=== PATIENT | female | born 1955 | race Caucasian/White ===

== ENCOUNTER → 2016-06-06 | Outpatient (CLI) | payer BC ==
[~2016-06-06] MED LIST: IBUP-103 PO; MULT-513 PO; RIZA10TA18 PO; TRIATAB3 PO
--- NOTE | 2016-06-06 16:02 | MAMMOGRAPHY REPORT ---
BILATERAL DIGITAL SCREENING MAMMOGRAM TOMOSYNTHESIS WITH CAD: 06/06/2016 CLINICAL HISTORY: Routine screening. Patient has no complaints. TECHNIQUE: Breast tomosynthesis in addition to standard 2D mammography was performed. Current study was also evaluated with a Computer Aided Detection (CAD) system. COMPARISON: Comparison is made to exams dated: 05/22/2015 ultrasound, 05/22/2015 mammogram, 05/01/2014 mammogram, 04/27/2013 mammogram, 04/05/2012 mammogram, and 04/03/2011 mammogram - [facility] enter. BREAST COMPOSITION: There are scattered areas of fibroglandular density in both breasts. FINDINGS: No suspicious masses, calcifications, or areas of architectural distortion are noted in e ither breast. There has been no significant interval change compared to prior exams. IMPRESSION: ACR BI-RADS CATEGORY 1: NEGATIVE There is no mammographic evidence of malignancy. A 1 year screening mammogram is recommended. The p atient will receive written notification of the results. Approximately 10% of breast cancers are not detected with mammography. A negative mammographic repor t should not delay biopsy if a clinically suggestive mass is present. Shayna Villatoro M.D. /:06/06/2016 15:58:17 Bench Scientist: Supriya Salinas [facility] letter sent: Normal 1/2 BI-RADS Code: ACR BI-RADS Category 1: Negative
== END | disposition home or self-care (01) ==
LOC: C.MAMM 15:29
PROVIDERS: ATTEND Family Medicine
DX: Z12.31 Encounter for screening mammogram for malignant neoplasm of breast (principal)

== ENCOUNTER 2016-10-31 19:52 | Emergency (ER) | payer BC ==
[~2016-10-31] VITALS: Ht 160 cm; Wt 89.2 kg
[2016-10-31 19:57] VITALS: TEMP 36.8; Ht 160 cm; Wt 89.2 kg
[2016-10-31] MEDS ORDERED: IBUP-103 PO (20:12)
[2016-10-31] MEDS ORDERED: RIZA10TA18 PO (20:12)
[2016-10-31] MEDS ORDERED: MULT-513 PO (20:12)
[2016-10-31] MEDS ORDERED: TRIATAB3 PO (20:12)
--- NOTE | 2016-10-31 21:20 | DIAGNOSTIC IMAGING REPORT ---
RIGHT LOWER EXTREMITY VENOUS DOPPLER HISTORY: RIGHT CALF PAIN, EVAL DVT Right COMPARISON STUDY: None. FINDINGS: There is normal compressibility, flow, and augmentation within the right lower extremity deep venous system. A 4.7 x 2.4 x 0.9 cm popliteal cyst. IMPRESSION: No DVT within the right lower extremity Electronically signed by: Chaitanya Katz M.D. 10/31/2016 9:19 PM Dictated Date/Time: 10/31/2016 9:18 PM
--- NOTE | 2016-10-31 21:23 | DIAGNOSTIC IMAGING REPORT ---
RIGHT KNEE 3 VIEWS CLINICAL HISTORY: RIGHT WITH SUNRISE, PAIN Right COMPARISON STUDY: None. FINDINGS: Severe osteoarthritis at the patellofemoral joint with paks-wl-gniw articulation and marked osteophytes. No fracture or dislocation within the right knee. No significant knee effusion. Soft tissues are unremarkable. Partial osteophytes within the medial lateral compartment of the knee. IMPRESSION: No fractures. Severe osteoarthritis at the patellofemoral joint. Electronically signed by: Chaitanya Katz M.D. 10/31/2016 9:22 PM Dictated Date/Time: 10/31/2016 9:21 PM
[2016-10-31 21:25] LABS: MEAN CELL VOLUME 90.1 fL (80-100); MEAN CORPUSCULAR HEMOGLOBIN 30.3 pg (25-34); MEAN CORPUSCULAR HGB CONC 33.6 g/dl (32-36); MEAN PLATELET VOLUME 11.2 fL (7.4-10.4); PLATELET COUNT 193 K/uL (130-400); RED BLOOD COUNT 4.66 M/uL (4.2-5.4)
[2016-10-31 21:38] LABS: PROTHROMBIN TIME (PATIENT) 10.5 SECONDS (9.0-12.0)
[2016-10-31 21:46] LABS: BUN/CREATININE RATIO 11.1 (10-20); CALCIUM 9.5 mg/dl (8.5-10.1); CREATININE 0.93 mg/dl (0.60-1.20); POTASSIUM 3.5 mmol/L (3.5-5.1)
--- NOTE | 2016-10-31 21:52 | EMERGENCY ROOM VISIT NOTE ---
ED Visit Note First contact with patient: 20:02 CHIEF COMPLAINT: Right lower leg pain 5 days HISTORY OF PRESENT ILLNESS: Patient is a 60-year-old white female who presents emergency department for evaluation of right lower leg pain 5 days. She sees her symptoms started after she drove to [place] for a conference. She notes that she was seated for most of the day in meetings for a conference, and returned yesterday. She states that she noted discomfort primarily in the back of the right knee the first day of the conference, after the drive. She states that she had to elevate the leg while seated to help with her discomfort. She also notes that she did a lot of walking. She states the pain is primarily in the posterior lateral aspect of the right knee, but radiates down the calf to her ankle. She tried pacing the knee, taking ibuprofen, massage, position changes and stretches. She is okay when she walks, but feels some soreness in the knee. She states that the pain suddenly increased this afternoon, and when it wasn't not alleviated by ibuprofen they came to the emergency department. She denies any pain in her thigh. No symptoms in the left leg. She denies a numbness, tingling or weakness. She denies any known back, hip or knee problems. No personal or family history of a DVT or PE. She is not on any hormone replacement therapy. She rates her discomfort a 6/10. REVIEW OF SYSTEMS:Review of systems as per HPI. All other systems reviewed were negative. 10 systems reviewed. PMH: Electronic medical records are reviewed and summarized as above/below. See Problem List. SOCIAL HISTORY: Patient lives at home with her . She is employed as a teacher. Nonsmoker. PHYSICAL EXAM: Vital Signs: Reviewed Nurse's notes. Patient is a pleasant, well -appearing 60-year-old white female who is awake and alert and in no acute distress. EXTREMITIES: Leg lengths are symmetrical. Examination of the right leg does not demonstrate any erythema, edema, significant soft tissue swelling or rashes. There is no increased warmth or induration. Distal pulses are easily palpable and symmetrical bilaterally. The calves are soft and nontender. No palpable cords are appreciated. There is no significant knee joint effusion palpable. She has peripatellar tenderness and crepitus and pain along the medial joint line. She has some fullness in the popliteal space. She can extend fully, flex greater than 90. No gross ligamentous instability appreciated. Negative logroll, negative straight leg raise. Hip range of motion is nontender. Sensation to light touch is intact over the lower extremities bilaterally. Negative Homans sign. EMERGENCY DEPARTMENT COURSE: The patient was seen and evaluated as above. CBC, coags and CMP were drawn and were unremarkable. X-rays of the right knee noted patellofemoral arthritis. Ultrasound of the right lower extremity noted no DVT , there was a popliteal cyst noted. I suspect the popliteal cyst is the source of the patient's discomfort. Differential diagnoses also entertained included degenerative joint disease, meniscal tear, DVT, superficial thrombophlebitis, muscle strain, cellulitis, among others. The patient was reassured. She was encouraged to use anti-inflammatory medicines and ice and follow-up with her primary care provider or orthopedics if her symptoms are not improving. The patient rated her pain a 2/10 at discharge. Medication reconciliation: I attest that I have personally reviewed the patient' s current medication list. Blood pressure screening: Patient was found to have a slightly elevated blood pressure due to circumstances. I do not believe that the patient requires hypertension monitoring. RIGHT LOWER EXTREMITY VENOUS DOPPLER HISTORY: RIGHT CALF PAIN, EVAL DVT Right COMPARISON STUDY: None. FINDINGS: There is normal compressibility, flow, and augmentation within the right lower extremity deep venous system. A 4.7 x 2.4 x 0.9 cm popliteal cyst. IMPRESSION: No DVT within the right lower extremity RIGHT KNEE 3 VIEWS CLINICAL HISTORY: RIGHT WITH SUNRISE, PAIN Right COMPARISON STUDY: None. FINDINGS: Severe osteoarthritis at the patellofemoral joint with gfnf-[id number] articulation and marked osteophytes. No fracture or dislocation within the right knee. No significant knee effusion. Soft tissues are unremarkable. Partial osteophytes within the medial lateral compartment of the knee. IMPRESSION: No fractures. Severe osteoarthritis at the patellofemoral joint. Problem List Medical Problems: (1) Hypertension Status: Chronic Surgical Problems: (1) History of hysterectomy Status: Resolved Current/Historical Medications Scheduled Ibuprofen Tab (Advil), 600 MG PO QAM Multivitamins/Minerals (Mvi With Minerals), 1 TAB PO DAILY Rizatriptan Benzoate (Maxalt), 10 MG PO PRN UD Triamterene/Hctz (Triamterene/Hctz 37.5-25MG), 1 TAB PO Q2D Allergies Coded Allergies: Sulfa Antibiotics (Verified Allergy, Mild, HIVES, 10/31/16) Vital Signs Date Time Temp Pulse Resp B/P (MAP) Pulse Ox O2 Delivery O2 Flow Rate FiO2 10/31/16 22:06 95 20 148/97 96 10/31/16 19:57 36.8 96 18 158/103 98 Room Air Laboratory Results 10/31/16 20:30 10/31/16 20:30 Test 10/31/16 20:30 Red Blood Count 4.66 M/uL (4.2-5.4) Mean Corpuscular Volume 90.1 fL (80-100) Mean Corpuscular Hemoglobin 30.3 pg (25-34) Mean Corpuscular Hemoglobin Concent 33.6 g/dl (32-36) RDW Standard Deviation 45.6 fL (36.4-46.3) RDW Coefficient of Variation 13.8 % (11.5-14.5) Mean Platelet Volume 11.2 fL (7.4-10.4) Prothrombin Time 10.5 SECONDS (9.0-12.0) Prothromb Time International Ratio 1.0 (0.9-1.1) Activated Partial Thromboplast Time 26.6 SECONDS (21.0-31.0) Partial Thromboplastin Ratio 1.0 Anion Gap 4.0 mmol/L (3-11) Est Creatinine Clear Calc Drug Dose 69.0 ml/min Estimated GFR () 78.0 Estimated GFR (Non- 67.3 BUN/Creatinine Ratio 11.1 (10-20) Calcium Level 9.5 mg/dl (8.5-10.1) Total Bilirubin 0.4 mg/dl (0.2-1) Aspartate Amino Transf (AST/SGOT) 17 U/L (15-37) Alanine Aminotransferase (ALT/SGPT) 28 U/L (12-78) Alkaline Phosphatase 119 U/L (45-117) Total Protein 7.2 gm/dl (6.4-8.2) Albumin 3.6 gm/dl (3.4-5.0) Globulin 3.6 gm/dl (2.5-4.0) Albumin/Globulin Ratio 1.0 (0.9-2) Departure Information Impression Primary Impression: Synovial cyst of right popliteal space Additional Impressions: Patellofemoral arthritis of right knee Right calf pain Referrals Martell Webster M.D. (PCP) Patient Instructions [facility] Additional Instructions Ibuprofen(Motrin, Advil) may be used for fever or pain. Use 600mg every six hours as needed. Take with food. Avoid using more than 2400mg in a 24 hour period. Do not use 2400mg per day for more than three consecutive days without physician direction. Prolonged inappropriate use can lead to stomach upset or ulcers. This medication can be taken if you need to drive, work, or perform activities which may be dangerous when taking narcotic pain medication. (AND/OR) Acetaminophen(Tylenol) may be used for fever or pain. Use 1000mg every six hours as needed. Avoid using more than 3000mg in a 24 hour period. This medication can be taken if you need to drive, work, or perform activities which may be dangerous when taking narcotic pain medication. Ice compresses for 20 minutes at a time four times daily for 2-3 days. Rest and elevate your injury. May resume normal activity as your pain allows. Continue current medications. Return to the ER immediately for any numbness, tingling, severe pain, extreme swelling in the extremity or as needed. Follow-up with your primary care physician or with orthopedic surgery for further care and management if your symptoms are not improving. Problem Qualifiers
[2016-10-31 22:06] VITALS: BP 148/97; PULSE 95; O2SAT 96
== END 2016-10-31 22:08 | disposition home or self-care (01) ==
LOC: C.EDB 19:52 → C.EDD 22:08
DX: M71.21 Synovial cyst of popliteal space [Baker], right knee (principal); M17.11 Unilateral primary osteoarthritis, right knee; M79.661 Pain in right lower leg; I10 Essential (primary) hypertension; Z90.710 Acquired absence of both cervix and uterus

== ENCOUNTER → 2017-01-16 | Outpatient (CLI) | payer BC ==
--- NOTE | 2017-01-16 16:11 | DIAGNOSTIC IMAGING REPORT ---
MRI OF THE RIGHT KNEE CLINICAL HISTORY: Right knee pain. COMPARISON STUDY: Radiographs of the right knee dated 10/31/2016. TECHNIQUE: MRI of the right knee was performed utilizing proton density, T1, and T2-weighted sequences in the axial, sagittal, coronal planes. IV contrast was not administered for this examination. FINDINGS: Menisci: The medial and lateral menisci appear intact. A 1.3 cm parameniscal cyst is suggested anterior to the lateral meniscus on sagittal image #7. A smaller parameniscal cyst is suggested on image #9. Ligaments: The anterior and posterior cruciate ligaments are intact. The medial and lateral collateral ligaments are within normal limits. Extensor mechanism: The extensor mechanism is intact. Hoffa's fat pad is normal in appearance. 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 There is nearly full-thickness loss along the medial facet and the underlying femoral trochlea. There is extensive subchondral cyst formation with mild marrow edema in the lateral facet as well as underlying femoral trochlea. Only mild degenerative cartilage loss is seen along the weightbearing surface in the medial and lateral compartments. No full-thickness loss is identified. There are marginal osteophytes and degenerative beaking of the tibial spine. There is no MRI evidence of fracture. Mild marrow edema is also seen within the lateral tibial plateau. Joint effusion: There is a moderate joint effusion. Soft tissues: There is generalized atrophy of the regional musculature. No intramuscular edema is seen. A large popliteal cyst measures up to 5.1 cm. Fluid is seen tracking along the gastrocnemius muscle, likely related to the popliteal cyst. Soft tissue edema is noted in the popliteal fossa. There is also prepatellar edema. IMPRESSION: 1. There are 2 parameniscal cysts suggested anterior to the lateral meniscus. The largest measures up to 1.3 cm. No underlying meniscal tear is clearly seen. 2. There is no evidence of ligamentous or meniscal injury in the right knee. 3. Severe chondromalacia patella as above with significant associated reactive marrow edema. 4. Only mild degenerative cartilage loss is seen in the medial and lateral compartments. 5. Moderate joint effusion an large popliteal cyst. Electronically signed by: Umair Knight M.D. 01/16/2017 4:09 PM Dictated Date/Time: 01/16/2017 4:02 PM
== END | disposition home or self-care (01) ==
LOC: C.MRIBC 14:42
PROVIDERS: ATTEND Family Medicine
DX: S83.281A Other tear of lateral meniscus, current injury, right knee, initial encounter (principal); M23.8X1 Other internal derangements of right knee; X58.XXXA Exposure to other specified factors, initial encounter; M23.041 Cystic meniscus, anterior horn of lateral meniscus, right knee; M22.41 Chondromalacia patellae, right knee; M25.461 Effusion, right knee; M71.21 Synovial cyst of popliteal space [Baker], right knee

== ENCOUNTER → 2017-03-16 | Outpatient (CLI) | payer BC | END | disposition home or self-care (01) | LOC: C.RDSM 15:10 | PROVIDERS: ATTEND Physical Medicine & Rehabilitation Sports Medicine | DX: M17.11 Unilateral primary osteoarthritis, right knee (principal) ==

== ENCOUNTER → 2017-07-29 | Outpatient (CLI) | payer BC ==
--- NOTE | 2017-07-30 12:41 | MAMMOGRAPHY REPORT ---
BILATERAL DIGITAL SCREENING MAMMOGRAM TOMOSYNTHESIS WITH CAD: 07/29/2017 CLINICAL HISTORY: Routine screening. Patient has no complaints. TECHNIQUE: Breast tomosynthesis in addition to standard 2D mammography was performed. Current study was also evaluated with a Computer Aided Detection (CAD) system. COMPARISON: Comparison is made to exams dated: 06/06/2016 mammogram, 05/22/2015 ultrasound, 05/22/2015 mammogram, 05/01/2014 mammogram, 04/27/2013 mammogram, and 04/05/2012 mammogram - [facility]. BREAST COMPOSITION: There are scattered areas of fibroglandular density in both breasts. FINDINGS: There are a few benign rounded rim calcifications in the right breast. Stable intramammary lymph node in the left upper outer quadrant posteriorly. No suspicious mass, architectural distorti on or cluster of microcalcifications is seen. IMPRESSION: ACR BI-RADS CATEGORY 1: NEGATIVE There is no mammographic evidence of malignancy. A 1 year screening mammogram is recommended. The pa tient will receive written notification of the results. Approximately 10% of breast cancers are not detected with mammography. A negative mammographic report should not delay biopsy if a clinically suggestive mass is present. Hyun Sutton M.D. ay/:07/29/2017 16:06:04 Account Relationship Manager: Supriya Salinas, [facility] letter sent: Normal 1/2 BI-RADS Code: ACR BI-RADS Category 1: Negative
== END | disposition home or self-care (01) ==
LOC: C.MAMM 15:41
PROVIDERS: ATTEND Family Medicine
DX: Z12.31 Encounter for screening mammogram for malignant neoplasm of breast (principal)

== ENCOUNTER 2020-09-12 06:26 | Observation (INO) ==
--- NOTE | 2020-09-04 11:00 | History & Physical Report ---
Date of Service September 04, 2020 Assessment & Plan (1) Right knee DJD: Postoperative prescriptions for Percocet and Coumadin will be provided at discharge from the hospital. Anticipate discharge to home with home health services. The patient is aware of the COVID-19 risks associated with surgery. She is currently asymptomatic of any COVID-19 symptoms. She will obtain nasal swab testing 2 days prior to surgery. PDMP was checked, and there are no concerning findings. The patient has already seen her PCP for medical clearance. She is receiving an echocardiogram on Thursday. Call with any other concerns. History of Present Illness Chief Complaint: Right knee pain Primary Care Provider: Martell Webster MD This 64-year-old female presents for her preoperative history and physical. She is scheduled to undergo a right knee total knee arthroplasty on 09/12/2020. The patient has had right knee pain for the last several years. It has become significantly worse over the last 6 months. She has been unable to do even simple daily activities without pain secondary to her knee. Her pain is affecting her ADLs and her ability to walk. She is currently using a walking stick with a significant limp. She has tried intra-articular injections as well as activity modification and use of an assistive device without improvement. No numbness or tingling. She notes crepitus with motion. She does note some loss of motion. Preoperative imaging has been obtained. Allergies Allergy/AdvReac Type Severity Reaction Status Date / Time Sulfa (Sulfonamide Allergy Mild HIVES Verified 12/04/17 14:56 Antibiotics) Home Medications Medication Instructions Recorded Confirmed Type ibuprofen 600 mg PO DAILY 12/04/17 12/04/17 History multivitamin 1 tab PO DAILY 12/04/17 12/04/17 History rizatriptan 10 mg PO DAILY PRN 12/04/17 12/04/17 History triamterene-hydrochlorothiazid 1 tab PO DAILY 12/04/17 12/04/17 History Past Med/Surg History Medical History (Updated 09/04/20 @ 10:59 by Kobe Calles PA-C) Hypertension Migraine headache Obesity Osteoarthritis Surgical History (Updated 09/04/20 @ 10:54 by Kobe Calles PA-C) H/O laparoscopy H/O: hysterectomy Family History (Updated 09/04/20 @ 10:55 by Kobe Calles PA-C) Other Osteoarthritis Social History (Updated 09/04/20 @ 10:56 by Kobe Calles PA-C) Hx Alcohol Use: No Visual Impairment: No Limitations Hearing Ability: Normal marital status: Current Living Situation: Spouse current occupational status: employed Feels Safe at Home: Yes Review of Systems Review of Systems: All systems reviewed & are unremarkable except as noted in HPI & below A total of 10 systems were reviewed. Physical Exam Physical Exam: Vitals: Height 159.5 cm, weight 88.9 kg, BMI 34.9, temperature 36.0, BP 138/92, pulse 100, O2 sat 100% on room air. General: well-developed, well-nourished, middle-aged white female in no acute distress. Sitting in a chair. Alert and oriented. Skin: Warm and dry with good turgor. No rashes or lesions. No ecchymosis or erythema. Some minor bug bites were present on the anterior right knee. HEENT: Normocephalic, atraumatic. Eyes: PERRLA, EOMI. Nares patent bilaterally without turbinate large amount. Oropharynx without erythema or exudate, no lesions noted. Uvula midline, oral mucosa moist. Fair dentition. Dental caps are noted. Heart: RRR, no MGR. Lungs: Clear to auscultation bilaterally, no crackles, rhonchi or wheezing, good air movement. Abdomen: Obese, bowel sounds present x4, soft, nontender. No organomegaly. No masses. Musculoskeletal: Right knee evaluation reveals a mild intra-articular effusion. No redness or warmth. There is crepitus palpable with range of motion. There is mild discomfort with palpation over the medial joint line. More significant pain with palpation around the peripatellar area and lateral joint line today. She lacks 2-3 degrees of terminal extension. Flexion to 100 degrees. Strength is 5/5 with fair quad tone. Stable collateral ligaments. No defect in the patellar tendon or quadriceps tendon. Ambulating with a significantly antalgic gait using a walking stick. Neurologic: Gross sensation is intact across the lower extremities by soft touch. Peripheral pulses are 2+. Results & Data Results & Data ([facility]) Diagnostic Findings Radiographic imaging previously obtained shows end-stage DJD of the knee specifically in the patellofemoral compartment. She is entirely pavy-el-axyn. Periarticular osteophytes are also present. There is narrowing of the medial and lateral joint lines as well. No evidence currently for loose bodies.
--- NOTE | 2020-09-06 09:59 | Anesthesiology Consultation ---
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 Preoperative COVID19 testing to be completed on 09/10. PCP clearance 08/29/20 -- "Clinically the patient is felt to be reasonable medical risk for the proposed surgery. But, given the screening EKG showing questionable evidence of lateral wall infarct age indeterminate, we need to get an echocardiogram to rule out questionable lateral wall infarct. If the echo is unremarkable then I feel that the patient is medically optimized to proceed with surgery." Addendum 09/04/2020: Echo Reviewed. "No evidence of a lateral wall infarct as was questioned by EKG." Chart Review Chart Review: Acceptable Risk for Surgery and Patient NOT seen in Pre Admission Testing History Surgery Operation Date: 09/12/20 09:20 Proposed Procedures p Right Total Knee Arthroplasty - Fawad Orozco MD Height/Weight Height: 5 ft 3 in Weight: 86.183 kg Allergies Allergy/AdvReac Type Severity Reaction Status Date / Time Sulfa (Sulfonamide Allergy Mild HIVES Verified 09/05/20 13:17 Antibiotics) Medications Home Medications Medication Instructions Recorded Confirmed Last Taken ibuprofen 600 mg PO DAILY PRN 12/04/17 09/05/20 Unknown multivitamin 1 tab PO QAM 12/04/17 09/05/20 Unknown triamterene-hydrochlorothiazid 1 tab PO QAM 12/04/17 09/05/20 Unknown metoprolol succinate 25 mg PO QAM 09/05/20 09/05/20 Unknown Past Medical History Medical History Hypertension Migraine headache Obesity Osteoarthritis Past Family History Family History Other Osteoarthritis Past Surgical History Surgical History H/O laparoscopy H/O: hysterectomy History of colonoscopy History of esophagogastroduodenoscopy (EGD) Hx of foot surgery left foot hammer toe Hx of oral surgery for abcess root canal Social History Smoking Status: Never smoker Do You Dip or Chew Tobacco: No Hx Alcohol Use: Yes Alcohol type: beer alcohol intake frequency: holidays/special occasions only Hx Substance Use: No substance use type: does not use Lab Results Anesthesia Preop Results Results Anesthesia Widget: WBC 5.48 K/uL (4.8-10.8) 08/22/20 Hgb 14.2 g/dL (12.0-16.0) 08/22/20 Hct 41.8 % (37-47) 08/22/20 Plt 186 K/uL (130-400) 08/22/20 Na 140 mmol/L (136-145) 08/22/20 K 3.8 mmol/L (3.5-5.1) 08/22/20 Cl 107 mmol/L (98-107) 08/22/20 CO2 30 mmol/L (21-32) 08/22/20 BUN 10 mg/dl (7-18) 08/22/20 Creat 0.73 mg/dl (0.6-1.2) 08/22/20 Glucose Level 86 mg/dl (70-99) 08/22/20 PT 10.2 Seconds (9.0-12.0) 08/22/20 PTT 25.9 Seconds (21.0-31.0) 08/22/20 INR 1.0 (0.9-1.1) 08/22/20 Urine Color Yellow 08/22/20 Urine Appearance Clear (Clear) 08/22/20 Urine pH 7.5 (4.5-7.5) 08/22/20 Urine Specific [place] 1.012 (1.000-1.030) 08/22/20 Urine Protein Negative (Negative) 08/22/20 Urine Glucose (UA) Negative (Negative) 08/22/20 Urine Ketones Negative (Negative) 08/22/20 Urine Blood 1+ (Negative) H 08/22/20 Urine Nitrite Negative (Negative) 08/22/20 Urine Bilirubin Negative (Negative) 08/22/20 Urine Urobilinogen Negative (Negative) 08/22/20 Urine Leukocyte Esterase Trace (Negative) H 08/22/20 Urine WBC (Auto) 1-5 /hpf (0-5) 08/22/20 Urine RBC (Auto) 10-30 /hpf (0-4) H 08/22/20 Urine Hyaline Casts (Auto) 0 /lpf (0-5) 08/22/20 Urine Epithelial Cells (Auto) 10-20 /lpf (0-5) H 08/22/20 Urine Bacteria (Auto) Negative (Negative) 08/22/20 Blood Type O Positive 08/22/20 Antibody Screen NEGATIVE 08/22/20 Testing Electrocardiogram Date: 08/22/20 Normal sinus rhythm at 81 bpm. Possible left atrial enlargement. Possible lateral infarct, age undetermined. Compared to EKG of 12/04/2017, T wave inversion no longer evident in inferior leads. Chest X-Ray Date: 08/22/20 No large infiltrates or consolidative lesions are seen. Small opacity at the posterior left costophrenic angle could represent trace pleural effusion or pleural thickening. Echocardiogram Date: 09/03/20 EF: 55-59% The LV cavity size is normal. Mild concentric LVH. LV wall motion is normal. Grade 1 diastolic dysfunction. No significant valvular disease. Stress Test Date: 01/08/18 Resting EF: 55-60% Stress echo was negative for inducible ischemia. No arrhythmias. Normal heart rate and BP response to exercise. Average exercise tolerance. At rest, normal LV chamber size with mild concentric LVH. Normal LV systolic function without regional wall motion normality. Grade 1 diastolic dysfunction. No significant valvular pathology.
--- NOTE | 2020-09-12 06:24 | History & Physical Bridge Note ---
Date of Service September 12, 2020 History & Physical Bridge Note I have examined the patient, reviewed the History & Physical and in the interval since the performance of the History & Physical I have noted the following changes of clinical significance: consent obtained/site verified/covid screen negative.no changes noted
[~2020-09-12 06:26] MED LIST changes: -IBUP-103 PO; +LR 500ML BOLUS, THEN 15ML/HR IV SCH; +LR 60ML/HR IV SCH; -MULT-513 PO; -RIZA10TA18 PO; +ROPIVACAINE 0.5% HCL/PF 150 MG, BUPIVACAINE 0.75% MPF 20 ML, EPINEPHrine 0.15 MG, Ketor... INFIL SCH; +TRANEXAMIC ACID 1,000 MG **IV Pre-op IV SCH; -TRIATAB3 PO; +ceFAZolin 2000MG 2,000 MG/15 ML SYR IV SCH
[2020-09-12] MEDS ORDERED: BUPIVACAINE 0.5 % 5 MG/1 ML PF 10ML VIAL ONE (06:35)
[2020-09-12] MEDS ORDERED: EPINEPHrine INJ 1 MG/ML AMP ONE (06:35)
[2020-09-12] MEDS ORDERED: ROPIVACAINE 0.5% 5 MG/ML 30 ML VIAL ONE (06:35)
[2020-09-12] MEDS ORDERED: ONDANSETRON INJ 2 MG/ML 2 ML VIAL IV PRN ×2 (07:22→11:55)
[2020-09-12] MEDS ORDERED: HYDROmorphone INJ 1 MG/ML SYRINGE IV PRN (07:22)
[2020-09-12] MEDS ORDERED: LABETALOL HCL IV 5 MG/ML 20ML IV PRN (07:22)
[2020-09-12] MEDS ORDERED: MEPERIDINE HCL 25 MG/ML CARP/VIAL IV PRN (07:22)
[2020-09-12] MEDS ORDERED: fentaNYL citrate 100 MCG/2 ML VIAL IV PRN (07:22)
[2020-09-12] MEDS ORDERED: ePHEDrine sulfate 50 MG/ML AMP IV PRN (07:22)
[2020-09-12] MEDS ORDERED: PHENYLEPHRINE 100MCG/ML 5ML SYR IV PRN (07:22)
[2020-09-12] MEDS ORDERED: ATROPINE SULFATE 0.1 MG/ML 10ML SYR IV PRN (07:22)
[2020-09-12] MEDS ORDERED: fentaNYL citrate 100 MCG/2 ML VIAL ONE (07:25)
[2020-09-12] MEDS ORDERED: MIDAZOLAM HCL 1 MG/ML 2ML VIAL ONE (07:25)
[2020-09-12] MEDS ORDERED: PROPOFOL IV EMULSION 10 MG/ML 20 ML VIAL IV ONE (07:28)
[2020-09-12] MEDS ORDERED: ORTHO JOINT ANESTHETIC ONE (08:38)
--- NOTE | 2020-09-12 10:34 | Post Operative Brief Note ---
Immediate Post Op Note v1 Date of Surgery September 12, 2020 Pre & Post Diagnosis Operation Date: 09/12/20 08:50 Pre-Op Diagnosis: Right Knee Degenerative Joint Disease Post-Op Diagnosis: Right Knee Degenerative Joint Disease I identified the patient and participated in the time-out.: Yes Procedure Operation Date: 09/12/20 08:50 Actual Procedures p Right Total Knee Arthroplasty(Right) - Fawad Orozco MD Surgeon Fawad Orozco MD Supercharger Repair [facility] Estimated Blood Loss 25 Findings Consistent with Post-Op Diagnosis
--- NOTE | 2020-09-12 10:42 | Operative Report ---
Post Operative Report Pre & Post Diagnosis Operation Date: 09/12/20 08:50 Pre-Op Diagnosis: Right Knee Degenerative Joint Disease Post-Op Diagnosis: Right Knee Degenerative Joint Disease I identified the patient and participated in the time-out.: Yes Procedure Operation Date: 09/12/20 08:50 Actual Procedures p Right Total Knee Arthroplasty(Right) - Fawad Orozco MD Surgeon DUYEN Orozco MD Rippler micha PETTIT Estimated Blood Loss 25 Findings Consistent with Post-Op Diagnosis Specimens see operative report Drains none Complications none Disposition Accompanied Patient To Recovery: Yes Disposition: Recovery Room Indications This 64-year-old female presented to the office with complaints of intractable right knee pain. She had tried conservative care measures without improvement. She elected to proceed with surgical intervention after being educated about potential risks and outcomes. Preoperative imaging was obtained. Description of Procedure Patient was given a spinal anesthetic and then taken to the operating room where she was given sedation. She was prepped and draped in the usual sterile fashi on. Please see Dr. Orozco's operative report for specifics of the procedure. I was present for the entire case from initial patient positioning through final wound closure. Assistance was provided in patient positioning, tissue retraction, hemostasis, trial implant placement, final implant placement, and final wound closure. Patient was taken to the recovery room in satisfactory condition. I attest to the content of the Intraoperative Record and any orders documented therein. Any exceptions are noted below.
--- NOTE | 2020-09-12 10:49 | Operative Report (OR) ---
DATE OF PROCEDURE: 09/12/2020 SURGEON: Fawad Orozco MD. BRINE TANK TENDER: Kobe Calles PA-C, no resident or fellow available. PREOPERATIVE DIAGNOSES: Osteoarthritis with valgus deformity and severe patellofemoral disease, righ t knee. POSTOPERATIVE DIAGNOSES: Osteoarthritis with valgus deformity and severe patellofemoral disease, rig ht knee. OPERATION PERFORMED: Cemented right total knee replacement. SUMMARY OF IMPLANTS: Size 2.5 right femur posterior cruciate substituting size 2.5 mobile bearing tr ay, size 2.5 x 10 mm PCL substituting insert, oval dome 3-peg patella size 41, two bags of Palacos G cement. ESTIMATED BLOOD LOSS: 25 mL. CRYSTALLOID: Per anesthesia. Bone pathology pending. PERIOPERATIVE SITUATION: Medically cleared female with intractable knee pain, and has failed conserva tive management. At this point in time, she has endstage disease by x-ray and physical exam, wants t o proceed with surgical treatment. She understands the risks and consequences of a total knee replac ement. DESCRIPTION OF PROCEDURE: The patient was appropriately identified, site verified, consent verified. Antibiotics were confirmed as being given. Right lower extremity was prepped and draped in the usu al routine fashion. Tourniquet was inflated to 275 mmHg after exsanguination of limb with a rubber E smarch bandage and total tourniquet time was roughly 50 minutes. Midline exposure utilized. Parapat ellar arthrotomy performed. Synovectomy completed. Osteophytes resected. Cruciates were resected. Tibia was subluxated, menisci resected. Distal femur entered with drill bit and appropriate distal femoral cutting block applied and a 14 mm cut made. Proximal tibia was then aligned with the extrame dullary alignment guide and a 4 mm cut made. Extension gap was excellent. Femur was sized between a 3 and 2.5 was measured 3 cut 2.5. Care was taken to ensure appropriate external rotation of the fem ur. The flexion gap was excellent. A box cut was then made, and a size 2.5 fit well. The tibia was then broached and reamed for 2.5 and with appropriate spacer at 10 mm, the knee was stable in full range of motion including full extension and mid range flexion. The patella tracked well. Patella was melecio y eroded especially on its lateral side, it was appropriately cut, leaving about 14-15 mm. Seating h oles made and a 41 button tracked well. Trial implants were then removed, and everything was irrigat ed with Betadine Pulsavac and the permanent cemented into position tibia, femur and patella in that o rder at 12 minutes, the tourniquet deflated at 14 minutes, the knee was inspected. Minor cement rachell bahman required. It was irrigated one further time and then closed after the permanent spacer was seate d and the knee reduced at 40 degrees of flexion using #2 Vicryl, 2-0 Vicryl and stainless steel clips . Appropriate dressing applied. The patient was transferred to recovery room in satisfactory condit ion, having tolerated the procedure well. Pathology pending on bone. DVT prophylaxis per protocol. Job ID: [id number]
--- NOTE | 2020-09-12 10:59 | XRay Report ---
RIGHT KNEE 2 VIEWS History: Right total knee arthroplasty. Degenerative arthritis. Postop. FINDINGS: The patient is status post a right total knee arthroplasty. The hardware is intact. No frac ture or dislocation. Skin reina are in place. IMPRESSION: Right total knee arthroplasty. No evidence for hardware complication. ACT 112: Negative or not required by law. Electronically signed by: Chaitanya Katz M.D. 09/12/2020 10:58 AM
--- NOTE | 2020-09-12 11:05 | Progress Notes ---
DATE OF SERVICE: 09/12/2020 SUBJECTIVE: Postop check status post right total knee replacement. The patient has done well in the operating room. Denies any chest pain, shortness of breath, fever, chills, nausea, vomiting or head ache. OBJECTIVE: Vital signs are stable. She is afebrile. Wound dressing clean, dry and intact. X-rays pending. ASSESSMENT: Doing well status post right total knee replacement. PLAN: Continue with postop care pathway. DVT prophylaxis per protocol. Discharge tomorrow. Job ID: [id number]
--- NOTE | 2020-09-12 11:07 | Anesthesiology Progress Note ---
Date of Service September 12, 2020 Anesthesia Post Procedure Vital Signs Vital Signs: Temp Pulse Pulse Resp BP Pulse Ox 09/12/20 10:50 63 16 100/60 99 09/12/20 10:43 36.6 C 74 20 107/61 99 09/12/20 07:52 75 18 134/91 97 09/12/20 07:12 36.7 C 84 18 122/85 96 Transfer of Care Handoff Completed per policy Notes Mental Status: alert / awake / arousable Patient Amnestic to Procedure: Yes Nausea / Vomiting: adequately controlled Pain: adequately controlled Airway Patency, RR, SpO2: stable & adequate BP & HR: stable & adequate Hydration State: stable & adequate Neuraxial Anesthesia: was administered and sensory block is resolving Anesthetic Complications: no major complications apparent and Pt Satisfied with anesthetic care
--- NOTE | 2020-09-12 11:19 | Discharge Summary (DS) ---
DATE OF ADMISSION: 09/12/2020 DATE OF DISCHARGE: 09/13/2020 CHIEF COMPLAINT: Right knee pain. HISTORY OF PRESENT ILLNESS: Admitted for elective right total knee replacement. To date the hospital course has been uneventful. Procedure went well. Postoperative x-rays look excellent. PAST MEDICAL AND PAST SURGICAL HISTORY: Remarkable for hypertension, migraine headaches, obesity, lap aroscopy, hysterectomy, osteoarthritis. PREOPERATIVE MEDICATIONS: Include ibuprofen, multivitamins, rizatriptan and triamterene/hydrochloroth iazide. ALLERGIES: SULFA. REVIEW OF SYSTEMS: Reveals no chest pain, shortness of breath, fever, chills, nausea, vomiting or he adache. Postoperative x-rays look excellent. ASSESSMENT: Status post right total knee replacement. PLAN: The plan is for discharge to home tomorrow with services if she does well overnight. Job ID: [id number]
[2020-09-12] MEDS ORDERED: METOCLOPRAMIDE HCL INJ 5 MG/ML 2 ML VIAL IV PRN (11:55)
[2020-09-12] MEDS ORDERED: bisacodyL 10 MG SUPP PR PRN (11:55)
[2020-09-12] MEDS ORDERED: diphenhydrAMINE 50 MG/ML VIAL IV PRN (11:55)
[2020-09-12] MEDS ORDERED: MAGNESIUM HYDROXIDE SUSP 30 ML UDC PO PRN (11:55)
[2020-09-12] MEDS ORDERED: SODIUM CHLORIDE 0.9% 1000ML 1,000 ML IV SCH (11:55)
[2020-09-12] MEDS ORDERED: ALUMINUM/MAGNESIUM SUSP 30 ML UDC PO PRN (11:55)
[2020-09-12] MEDS ORDERED: HYDROmorphone INJ 0.5 MG/0.5 ML SYR IV PRN (11:55)
[2020-09-12] MEDS ORDERED: NALOXONE HCL 0.4 MG/1 ML VIAL/CARP IV PRN (11:55)
[2020-09-12] MEDS: KETOROLAC 30 MG/ML VIAL IV SCH ×2 (14:01→18:35)
[2020-09-12] MEDS ORDERED: WARFARIN SOD 5 MG TAB PO SCH (16:00)
[2020-09-12] MEDS: ACETAMINOPHEN 500 MG TAB PO SCH ×2 (16:33→21:01)
[2020-09-12] MEDS: ORTHO WARFARIN NOMOGRAM SCH (16:34)
[2020-09-12] MEDS ORDERED: TRANEXAMIC ACID / 0.7% NACL 1,000 MG/100 ML BAG IV SCH (16:49)
[2020-09-12] MEDS: ASCORBIC ACID 500 MG TAB PO SCH (18:16)
[2020-09-12] MEDS: FERROUS GLUCONATE 324 MG TAB PO SCH (18:17)
[2020-09-12] MEDS: ceFAZolin 2000MG 2,000 MG/15 ML SYR IV SCH (18:35)
[2020-09-12] MEDS: DOCUSATE SODIUM 100 MG CAP PO SCH (20:56)
[2020-09-12] MEDS ORDERED: SENNA 8.6 MG TAB PO SCH (21:00)
[2020-09-12] MEDS: oxyCODONE HCL IR 5 MG TAB (IMMEDIATE RELEASE) PO PRN (21:56)
[2020-09-13] MEDS: ceFAZolin 2000MG 2,000 MG/15 ML SYR IV SCH (00:01)
[2020-09-13] MEDS: oxyCODONE HCL IR 5 MG TAB (IMMEDIATE RELEASE) PO PRN ×2 (03:18→11:21)
[2020-09-13] MEDS: KETOROLAC 30 MG/ML VIAL IV SCH ×2 (05:07)
[2020-09-13] MEDS: ACETAMINOPHEN 500 MG TAB PO SCH (05:08)
[2020-09-13 05:47] LABS: Hematocrit (blood only) 38.4 % (37-47); Hemoglobin 12.8 g/dL (12.0-16.0); Mean Corpuscular Hemoglobin 30.8 pg (25-34); Mean Corpuscular Hgb Conc 33.3 g/dL (32-36); Mean Corpuscular Volume 92.5 fL (80-100); Mean Platelet Volume 10.6 fL (7.4-10.4); Platelet Count 193 K/uL (130-400); RDW Coefficient of Variation 13.6 % (11.5-14.5); RDW Standard Deviation 46.2 fL (36.4-46.3); Red Blood Count 4.15 M/uL (4.2-5.4); White Blood Count 10.25 K/uL (4.8-10.8)
[2020-09-13 05:57] LABS: INR 1.1 (0.9-1.1); Prothrombin Time 10.8 Seconds (9.0-12.0)
[2020-09-13 06:12] LABS: BUN Creatinine Ratio 21.1 (10-20); Creatinine Clr Calc Pharmacy 92.5 ml/min; Est GFR (African American) 109.5 ml/min; Est GFR (Non-African American) 94.5 ml/min
--- NOTE | 2020-09-13 06:56 | Progress Notes ---
DATE OF SERVICE: 09/12/2020 SUBJECTIVE: Postop check status post right total knee replacement. The patient is doing well. She is already up sitting in a chair. She states that she only needed two pain pills yesterday. She den ies chest pain, shortness of breath, fever, chills, nausea, vomiting, or headache. OBJECTIVE: VITAL SIGNS: Stable. She is afebrile. NEUROLOGIC: Neurovascular check, femoral sciatic nerve is normal. EXTREMITIES: Calves are nontender. Wound dressing clean, dry and intact. LABORATORY DATA: Laboratory work this morning reveals hematocrit stable at 38+, INR is 1.1. She rec eived Coumadin per nomogram. Electrolytes are good. ASSESSMENT AND PLAN: Doing well. Discharged to home today after PT/OT. Job ID: [id number]
[2020-09-13] MEDS: FERROUS GLUCONATE 324 MG TAB PO SCH (07:23)
[2020-09-13] MEDS: ASCORBIC ACID 500 MG TAB PO SCH (07:23)
[2020-09-13] MEDS: DOCUSATE SODIUM 100 MG CAP PO SCH (07:25)
[2020-09-13] MEDS ORDERED: dexAMETHasone 10 MG in SYRINGE 0 ML IV SCH (08:00)
[2020-09-13] MEDS ORDERED: METOPROLOL SUCC 25MG EXT REL TAB PO SCH (09:00)
[2020-09-13] MEDS ORDERED: MULTIVITAMIN TAB PO SCH (09:00)
[2020-09-13] MEDS ORDERED: TRIAMTERENE/HCTZ 37.5/25MG CAP PO SCH (09:00)
--- NOTE | 2020-09-13 10:13 | Orthopedic Progress Note ---
Date of Service September 13, 2020 Assessment & Plan (1) S/P total knee arthroplasty: Patient's dressings were changed today by me. New pressure dressing and VALENTIN hose were applied. PT/OT today. Discharge to home today after therapy is completed. Written discharge instructions were provided. Prescriptions for Percocet and Coumadin were sent to her pharmacy. Continue with the immobilizer today and tomorrow and discontinue on Thursday. Follow-up in the office in 2 weeks as scheduled for staple removal. Admission and Anticipated Discharge Date Admission Date: September 12, 2020 Subjective Patient is seen in her room this morning. She denies any chest pain, shortness of breath, nausea, vomiting, or abdominal pain. She is very pleased with her outcome. She states she has minimal pain. She feels ready for discharge to home. No additional complaints at this point. She has been out of bed and ambulatory. Review of Systems Review of Systems: Unchanged from yesterday. Physical Exam Physical Exam: General: Well-developed, well-nourished, middle-aged white female, in no acute distress. Sitting in a chair. Alert and oriented. Skin: Warm dry with good turgor. No rashes or lesions. Expected postoperative edema. Minimal ecchymosis. Dry postsurgical dressings are in place. Upon removal, she has no active bleeding. Scant drainage on her dressings. [place] are intact. Wound edges are well approximated. Musculoskeletal: Patient has intact motor function of her hip, knee, and ankle. She is able to perform straight leg raise. Full terminal extension. Flexion to around 60 degrees without difficulty. Neurologic: Gross sensation is intact across the right leg by soft touch. Peripheral pulses are 2+. Results & Data ([facility]) Vital Signs (Past 12 Hours) Vital Signs Temp Pulse Resp BP BP Pulse Ox 09/13/20 08:57 36.5 C 68 16 128/78 130/87 99 09/13/20 07:15 36.5 C 68 16 130/87 99 09/13/20 03:21 36.5 C 68 20 128/78 99 09/12/20 22:43 36.7 C 77 20 117/77 97 Laboratory Results CBC obtained this morning is unremarkable. INR is 1.1. PRP is also unremarkable. BUN of 14 and creatinine of 0.65. Glucose 108.
[2020-09-13] MEDS: ORTHO WARFARIN NOMOGRAM SCH (10:58)
[2020-09-13] MEDS ORDERED: WARFARIN SOD 5 MG TAB PO ONE (10:59)
== END 2020-09-13 12:46 | disposition home health service (06) ==
LOC: ASU 06:26 → 3E 06:26

== ENCOUNTER 2024-07-17 17:09 | Inpatient (IN) ==
--- OUTSIDE RECORDS SUMMARY | 2024-07-17 17:13 | External Medical Summary | Summary of Care ---
Author Name Unknown Organization [facility] Address [address] [place] [address] Phone [phone] Care Team Providers Care Intellectual Property Legal Assistant Name Role Phone Martell Webster MD Primary Care Provider [phone] Encounter Details Date Type Department Care Team (Late st Contact Info) Description 04/21/2024 Population Health External Data Unspecified Department Allergies Active Allergy Reactions Criticality Noted Date Comments Sulfa Antibiotics 06/10/1999 hives documented as of this encounter (statuses as of 04/21/2024) Medications MULTIVITAMINS PO TABS daily 0 8 Active Metoprolol Succinate ER 25 MG Oral Tablet Extended Release 24 Hour (toPROL XL)Indications:Es sential hypertension with goal blood pressure less than 140/90 Take 1 Tablet by mouth in the morning. In the morning.. 90 Tablet 3 4 Active Triamterene-HCTZ 37.5-25 MG Oral Capsule (Dyazide)Indicati ons:Essential hypertension with goal blood pressure less than 140/90 Take 1 Capsule by mouth in the morning. 90 Capsule 3 4 Active Rogaine Womens 5 % External Foam (Minoxidil)Indica tions:Alopecia areata Apply topically to affected area daily. Apply to affected area of scalp daily 60 g 11 4 Active Clobetasol Propionate 0.05 % External Ointment (Temovate)Indicat ions:Alopecia areata Apply 2x daily to areas of scalp itch when needed 60 g 5 Active Ketoconazole 2 % External CreamIndications: Seborrheic dermatitis of scalp Massage into scalp and rinse out after 5-10 minutes, 3x weekly. Can use own shampoo afterwards if desired. 60 g 2 5 Active documented as of this encounter (statuses as of 04/21/2024) Active Problems Problem Noted Date Diagnosed Date Migraine without aura and wi thout status migrainosus, not intractable 04/08/2019 Vitamin D deficiency 01/09/2014 Urinary frequency 12/03/2004 Dysuria 12/03/2004 HTN, goal below 140/90 Diarrhea Migraine documented as of this encounter (statuses as of 04/21/2024) Resolved Problems Problem Noted Date Diagnosed Date Resolved Date Laceration of left middle fi nger with foreign body without damage to nail 04/10/2020 04/10/2020 ADVANCE DIRECTIVE INFORMATION 02/20/2008 02/01/2024 Overview (02/20/2008): No, Advance Directive brochure given to patient at prior appointment. ACUTE CYSTITIS 12/03/2004 05/25/2008 Overview (05/25/2008): Resolved per Benign Acute Dxs Protocol #3 ACUTE SINUSITIS NOS 05/31/1999 05/18/19 09 Overview (05/18/2008): Resolved per Benign Acute Dxs Protocol #3 documented as of this encounter (statuses as of 04/21/2024) Immunizations Name Administration Dates Next Due COVID-19 mRNA, LNP-s, No Pre serve, 2-Dose Series (Moderna) 06/09/2020,04/29/2020 COVID-19, mRNA, LNP-s, PF, B ooster, 100mcg/0.5mg (Moderna) 01/09/2024,01/25/2021 PPD 12/10/2018 Pneumococcal Conjugate Vacci ne, 20-valent (Ononsbg30) 07/18/2022 Respiratory Syncytial Virus (Rsv) Vaccine, Unspecified (Use this ONLY If the brand of RSV MAB is not able to be identified) 02/08/2023 Seasonal Influenza Vac., MDV , IM, 0.5 mL (Fluzone) 01/09/2014,01/06/2013,02/02/2012,01/28,02/03/2008,02/03/2007 Seasonal Influenza, PF, 6 M & above, IM , (FluLaval or Fluzone) 12/15/2020,12/23/2019,01/17/2019,01/27,02/09/2017 Seasonal Influenza, Quadriva lent Hd (Fluzone Hd) 01/09/2024,02/01/2022 Seasonal Influenza, Quadriva lent, No Preserve, IM 02/20/2016,01/10/2015 01/11/2016 TDAP (age 10 and older)(Boostrix) 04/10/2020 TDAP, Age 7 and older, IM (Adacel) 2009 Zoster Vaccine Recombinant (Shingrix) 12/12/2019,04/08/2019 10/07/2019 documented as of this encounter Social History Tobacco Use Types Packs/Day Years Used Date Smoking Tobacco: Never Smokeless Tobacco: Never Alcohol Use Standard Drinks/Week Comments Yes 0 (1 standard drink = 0.6 oz pur e alcohol) rare PHQ-2 Answer Date Recorded PHQ Adult Total Score 0 07/21/2023 Hunger Vital Sign Answer Date Recorded Within the past 12 months, y ou worried that your food would run out before you got the money to buy more. Never true 07/19/19 23 Within the past 12 months, t he food you bought just didn't last and you didn't have money to get more. 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 Not on file Not on file Not on olive e documented as of this encounter Plan of Treatment Upcoming Encounters Date Type Department Care Team (Late st Contact Info) Description 07/11/2024 8:20 AM EDT [facility] [address] [place] [phone] Martell Webster MD [address] [place] [address] Scheduled Procedures Name Priority Associated Diagnoses Date/Ti me COLONOSCOPY FLEXIBLE PROXIMA L DIAGNOSTIC Recall Encounter for screening colonoscopy Health Maintenance Due Date Last Done Comments Cologuard 2001 Fecal Occult Blood Test 2001 Sigmoidoscopy 2001 Adult Wellness Visit 2022 COVID-19 Vaccine ( season) 2024 01/09/2024, 01/09/2023, 01/25/2021, Additional history exists Depression Screening 07/20/2024 07/21/2023 GFR 07/20/2024 07/21/2023, 06/29, 07/17/2021, Additional history exists Mammogram 12/29/2024 12/30/2023, 11/29, 12/18/2022, Additional history exists Albumin/Creatinine Ratio 07/21/2025 07/21/2022, 06/29 DXA Scan 08/19/2025 08/19/2022, 08/19/2022 Diabetes Screening 07/20/2026 07/21/2023, 0 07/21/2022, 07/17/2021, Additional history exists Colonoscopy 02/02/2028 02/01/2018, 07/2017, 10/04/2007 Colorectal Cancer Screening 02/02/2028 Lipid Panel 07/20/2028 07/21/2023, 06/29, 07/17/2021, Additional history exists DTap/Tdap Vaccines (3 - Td or Tdap) 04/10/2030 04/10/2020, 2009, 10/19/2003 Zoster Vaccines Completed 12/12/2019, 04/08/2019 Pap Smear Discontinued 07/09/2020, 12/28, 04/15/2010 (Done elsewhere), Additional history exists Pneumococcal Vaccine: 50+ Years Completed 07/18/2022 Influenza Vaccine (FLU shot) Completed 01/09/2024, 01/09/2023, 02/01/2022, Additional history exists HPV (Gardasil) Vaccine Aged Out No lo nger eligible based on patient's age to complete this topic Hepatitis B Vaccine Aged Out No longe r eligible based on patient's age to complete this topic MENINGOCOCCAL (MENACTRA/MENVEO) Aged Out No longer eligible based on patient's age to complete this topic documented as of this encounter Medical Devices Not on filedocumented as of this encounter Care Teams Intellectual Property Legal Assistant Relationship Specialty Start Date End Date Martell Webster MD PCP - General 04/03/99 documented as of this encounter
--- OUTSIDE RECORDS SUMMARY | 2024-07-17 17:13 | External Medical Summary | Summary of Care ---
Author Name Unknown Organization [facility] Address [address] [facility] [facility] [address] Phone [phone] Care Team Providers Care Director Trade Name Role Phone Martell Webster MD Primary Care Provider [phone] Reason for Visit * Reason Comments NEW PATIENT New pt. Here for yakov r loss, first noticed January 2024. Pt is not currently treating with anything. * Evaluate & Treat - Unlimited Visits (Within 30 days (routine)) - Authorized Specialty Diagnoses / Procedures Referred By Grey t Referred To Contact Dermatology Diagnoses Alopecia areata Martell Webster MD [address] [facility] [place] [address] Phone: tel: fax: Referral ID Status Reason Start Date Expiration Date Visits Requested Visits Authorized [id number] Authorized Specialty Services Required 03/01/2024 [id number] Encounter Details Date Type Department Care Team (Late st Contact Info) Description 04/07/2024 9:00 AM EST Office Visit [facility] [address] [place] [phone] Muna Rivers PA-C [address] [place] [address] [place] [phone] Alopecia areata*; Seborrheic dermatitis of scalp Allergies Active Allergy Reactions Criticality Noted Date Comments Sulfa Antibiotics 06/10/1999 hives documented as of this encounter (statuses as of 04/07/2024) Medications MULTIVITAMINS PO TABS daily 0 8 [...] as of this encounter (statuses as of 04/07/2024) Active Problems Problem Noted Date Diagnosed Date Migraine without aura and wi thout status migrainosus, not intractable 04/08/2019 Vitamin D deficiency 01/09/2014 Urinary frequency 12/03/2004 Dysuria 12/03/2004 HTN, goal below 140/90 Diarrhea Migraine documented as of this encounter (statuses as of 04/07/2024) Resolved Problems Problem Noted Date Diagnosed Date [...] as of this encounter (statuses as of 04/07/2024) Immunizations Name Administration Dates Next Due COVID-19 mRNA, LNP-s, No Pre serve, 2-Dose Series (Moderna) 06/09/2020,04/29/2020 COVID-19, mRNA, LNP-s, PF, B ooster, 100mcg/0.5mg (Moderna) 01/09/2024,01/25/2021 PPD 12/10/2018 Pneumococcal Conjugate Vacci ne, 20-valent ([id number]) 07/18/2022 Respiratory Syncytial Virus (Rsv) Vaccine, Unspecified [...] 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 on file Not on file Not on olive e documented as of this encounter Patient Instructions * Patient Instructions* Muna Rivers PA-C - 04/07/2024 9:13 AM EST The side effects of chronic topical steroid use were discussed with patient and include but are notlimited to telangiectasia (broken blood vessels), striae (stretch mendez), atrophy (thin skin), purpura (bruising), allergic contact dermatitis, acneiform eruptions and medicine addiction (rebound rash after cessation), cataracts, suppression of the body’s ability to create its own cortisol, weight gain, poor height growth, and high blood sugar. Advocated avoidance of use nears eyes (glaucoma and cataracts) and skin folds (enhanced effect = atrophy) unless otherwise directed. Advised to use the medication only as needed. Our plan will alwaysbe to use the lowest potency possible and to use a regimen that employs intermittent rather than constant use of topical steroids. If the rash clears then stop and transition to CERAVE CREAM for maintenance. documented in this encounter Progress Notes * Muna Rivers PA-C - 04/07/2024 9:00 AM EST SUBJECTIVE: HPI: Winter Pritchard is a 68 year old female seen at the request of Martell Webster MD for evaluation and treatment of hair loss. Hair loss noticed in 11/24 by hairdresser. Pcp prescribed Rogaine 5% foam but was not started. Hx of alopecia areata, once previously after surgery and unsure what would have caused it this time, stress level has dissipated. Areas/scalp can be itchy. No hx of autoimmune conditions. REVIEW OF SYSTEMS: SKIN: No other new or changing moles. HEME/LYMPH: No new or enlarging lumps or bumps. CONSTITUTIONAL: No nausea, vomiting, fevers, chills, diarrhea. No recent unintended weight loss, night sweats, appetite or malaise. RESP: negative MSK/EXT: Negative or as per HPI GI: negative CV: Negative or as per HPI Rest of systems are negative or as per HPI SKIN CANCER HX: NONE Reviewed, same day as visit, [facility] Dermatology lab work(s)/pathology report(s) as well as those sent by referring provider prior to seeing pt. Past Medical History: Diagnosis Date Diarrhea HTN, goal below 140/90 Migraine Urinary frequency FAMILY HISTORY: Skin CA: None Skin Disorders: none SOCIAL HISTORY: Social History Tobacco Use Smoking status: Never Smokeless tobacco: Never Substance Use Topics Alcohol use: Yes Comment: rare Vaping/E-Cigarette Use Vaping/E-Cigarette Use Never Assessed Vaping/E-Cigarette Substances Vaping/E-Cigarette Devices MEDICA TIONS: Current Outpatient Medications Medication Sig Dispense Refill MULTIVITAMINS PO TABS daily 0 Metoprolol Succinate ER 25 MG Oral Tablet Extended Release 24 Hour (toPROL XL) Take 1 Tablet by mouth in the morning. In the morning.. 90 Tablet 3 Triamterene-HCTZ 37.5-25 MG Oral Capsule (Dyazide) Take 1 Capsule by mouth in the morning. 90 Capsule 3 Rogaine Womens 5 % External Foam (Minoxidil) Apply topically to affected area daily. Apply to affected area of scalp daily 60 g 11 No current facility-administered medications for this visit. ALLERGY: Sulfa antibiotics OBJECT JOSEFINA: GEN: alert, no distress, appears oriented, pleasant, and cooperative. SKIN: Detailed exam of hair, face including lids and lips, and palpation of scalp completed: 1. Vertex/temporal regions of scalp-Well defined area of alopecia with mature white hair growth within. No erythema, no rash. 2. Generalized scalp-White greasy scale adherent to hair shafts, not on scalp. ASSESS MENT/PLAN: 1. Alopecia areata on vertex/temporal regions of scalp, almost resolved- Discussed condition and plan to use clobetasol 0.05% cream for any isolated itch or new areas of alopecia. Pt declined need forILK at this visit but might consider in future if new lesions appear. -Side effects of medication written and printed on checkout sheet. 2. Talha derm on scalp-Start ketoconazole 2% shampoo TIW. Patient alone today. Photo(s) of #1-2 taken, pt verbally consented to having photo(s) taken. Follow-up: as needed Photos and chart reviewed by Dr. Jesús Mendez. Presum ed diagnoses, expected natural histories, and management options discussed with the patient at length. Questions were addressed and anticipatory guidance provided. They were instructed to contact me if additional questions, concerns, or problems develop in the interim. -There were no barriers to learning and no other pain was related to today's visit. The patient and/or person accompanying patient demonstrates understanding of the visit and treatment. Muna Rivers PA-C 04/07/2024 8:54 AM Dermatology, [address] [place] [phone] documented in this encounter Nursing Notes * Asuncion Conde LPN - 04/07/2024 8:50 AM EST Patient identified by full name and date of Chief Complaint Patient presents with NEW PATIENT New pt. Here for hair loss, first noticed January 2024. Pt is not currently treating with anything. documented in this encounter Plan of Treatment Upcoming Encounters Date Type Department Care Team (Late st Contact Info) Description 07/11/2024 8:20 AM EDT Office Visit [facility] [place], [place] [address] [place] [phone] Martell Webster MD [address] [place] [phone] Scheduled Procedures Name Priority Associated Diagnoses Date/Ti [...] Not on filedocumented as of this encounter Procedures Procedure Name Priority Date/Time Associated Diagnosis Comments DERM EXAM - DERM (IMAGES ONLY, NO REPORT) Routine 04/07/2024 9:09 AM EST Alopecia areata Seborrheic dermatitis of scalp documented in this encounter Results * DERM EXAM - DERM (IMAGES ONLY, NO REPORT) (04/07/2024 9:09 AM EST) Narrative Scheduling, Silent - 04/07/2024 9:09 AM EST This is an imaging study not interpreted or resulted by a [employer] or [employer] contracted radiologist. us Muna Rivers PA-C RADIOLOGY ([facility] ) Final Result documented in this encounter Visit Diagnoses Diagnosis Alopecia areata- Primary Seborrheic dermatitis of scalp Other seborrheic dermatitis documented in this encounter Care Teams Director Trade Relationship Specialty Start Date End Date Martell Webster MD PCP - General 04/03/99 documented as of this encounter
--- OUTSIDE RECORDS SUMMARY | 2024-07-17 17:13 | External Medical Summary | Summary of Care ---
Author Name Unknown Organization [facility] Address [address] [facility] [address] Phone [phone] Care Team Providers Care Polysomnography Technician Name Role Phone Jovan Webster MD Primary Care Provider Reason for Visit * Reason Comments eRx-Medication Refill Encounter Details Date Type Department Care Team (Late st Contact Info) Description 06/05/2024 Refill [facility] [address] [place] [phone] Jovan Webster MD [address] [place], [place] [phone] Encounter for long-term (current) drug use*; Essential hypertension with goal blood pressure less than 140/90 Allergies Active Allergy Reactions Criticality Noted Date Comments Sulfa Antibiotics 06/10/1999 hives documented as of this encounter (statuses as of 06/06/2024) Medications MULTIVITAMINS PO TABS daily 0 11/11/19 08 Active Rogaine Womens 5 % External Foam (Minoxidil)Indic ations:Alopecia areata Apply topically to affected area daily. Apply to affected area of scalp daily 60 g 11 03/01/20 24 Active Clobetasol Propionate 0.05 % External Ointment (Temovate)Indica tions:Alopecia areata Apply 2x daily to areas of scalp itch when needed 60 g 04/07/19 25 Active Ketoconazole 2 % External CreamIndications :Seborrheic dermatitis of scalp Massage into scalp and rinse out after 5-10 minutes, 3x weekly. Can use own shampoo afterwards if desired. 60 g 2 04/07/19 25 Active Triamterene-HCTZ 37.5-25 MG Oral Capsule (Dyazide)Indicat ions:Essential hypertension with goal blood pressure less than 140/90 TAKE 1 CAPSULE BY MOUTH IN THE MORNING 90 Capsule 06/07/19 25 Active Metoprolol Succinate ER 25 MG Oral Tablet Extended Release 24 Hour (toPROL XL)Indications:E ssential hypertension with goal blood pressure less than 140/90 TAKE 1 TABLET BY MOUTH IN THE MORNING 90 Tablet 06/07/19 25 Active Metoprolol Succinate ER 25 MG Oral Tablet Extended Release 24 Hour (toPROL XL)Indications:E ssential hypertension with goal blood pressure less than 140/90 Take 1 Tablet by mouth in the morning. In the morning.. 90 Tablet 3 07/21/19 24 025 Discontinued Triamterene-HCTZ 37.5-25 MG Oral Capsule (Dyazide)Indicat ions:Essential hypertension with goal blood pressure less than 140/90 Take 1 Capsule by mouth in the morning. 90 Capsule 3 07/21/19 24 025 Discontinued documented as of this encounter (statuses as of 06/06/2024) Active Problems Problem Noted Date Diagnosed Date Migraine without aura and wi thout status migrainosus, not intractable 04/08/2019 Vitamin D deficiency 01/09/2014 Urinary frequency 12/03/2004 Dysuria 12/03/2004 HTN, goal below 140/90 Diarrhea Migraine documented as of this encounter (statuses as of 06/06/2024) Resolved Problems Problem Noted Date Diagnosed Date [...] as of this encounter (statuses as of 06/06/2024) Immunizations Name Administration Dates Next Due COVID-19 mRNA, LNP-s, No Pre serve, 2-Dose Series (Moderna) 06/09/2020,04/29/2020 COVID-19, mRNA, LNP-s, PF, B ooster, 100mcg/0.5mg (Moderna) 01/09/2024,01/25/2021 PPD 12/10/2018 Pneumococcal Conjugate Vacci ne, 20-valent ([id number]) 07/18/2022 Respiratory Syncytial Virus (Rsv) Vaccine, Unspecified [...] 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 Not on file Not on olive e documented as of this encounter Miscellaneous Notes * Telephone Encounter - Derick Guerrero RPh - 06/06/2024 2:52 PM EDTSigned Prescriptions: Disp Refills Triamterene-HCTZ 37.5-25 MG Oral Capsule (*90 Cap*0 Sig: TAKE 1 CAPSULE BY MOUTH IN THE MORNINGAuthorizing Provider: JOVAN WEBSTER User: DERICK GUERREROMetoprolol Succinate ER 25 MG Oral Tablet *90 Tab*0 Sig: TAKE 1 TABLET BY MOUTH IN THE MORNINGAuthorizing Provider: JOVAN WEBSTER User: DERICK GUERRERO * Telephone Encounter - Derick Guerrero RPh - 06/06/2024 2:51 PM EDT Refill approved until upcoming OV on 07/11 - pt will be due for labs Thank you, Derick Guerrero, PharmD Clinical Pharmacist [facility] 06/06/24 2:51 PM [phone] documented in this encounter Plan of Treatment Upcoming Encounters Date Type Department Care Team (Late st Contact Info) Description 07/11/2024 8:20 AM EDT Office Visit [facility] [address] [address] [phone] Jovan Webster MD [address] [place] [address] Scheduled Orders Name Type Priority Associated Diagnoses Orde r Schedule COMPREHENSIVE METABOLIC PANEL Lab Routine Essential hypertension with goal blood pressure less than 140/90 Encounter for long-term (current) drug use Expected: 06/13/2024 (Approximate), Expires: 06/06/2025 Scheduled Procedures Name Priority Associated Diagnoses Date/Ti [...] 07/17/2021, Additional history exists Colonoscopy 02/02/2028 02/01/2018, 0 07/2017, 10/04/2007 Colorectal Cancer Screening 02/02/2028 Lipid [...] on patient's age to complete this topic Meningitis B Vaccine (Bexsero/Trumemba) Aged Out No longer eligible based on patient's age to complete this topic documented as of this encounter Medical Devices Not on filedocumented as of this encounter Visit Diagnoses Diagnosis Encounter for long-term (current) drug use- Primary Encounter for long-term (current) use of other medications Essential hypertension with goal blood pressure less than 140/90 documented in this encounter Care Teams Polysomnography Technician Relationship Specialty Start Date End Date Jovan Webster MD PCP - General 04/03/99 documented as of this encounter
--- OUTSIDE RECORDS SUMMARY | 2024-07-17 17:13 | External Medical Summary ---
Author Name Unknown Address Unknown Organization [id number]:[facility] [place] [address] [facility] [place] [address] Laboratory Report Ordering Provider Test Date Status NICOLAS SEPULVEDA 06/14/2024 07:57:22 Final Observation Date Value Abnormality Reference (Units ) Status BUN 06/14/2024 07:57:22 8 6-20 (mg/dL) Final Creatinine 06/14/2024 07:57:22 0.8 0.5-1.0 (mg/dL) Final Glomerular filtration rate/1.73 sq M.predicted [Volume Rate/Area] in Serum, Plasma or Blood by Creatinine-based formula (CKD-EPI) 06/14/2024 07:57:22 83 >=60 (mL/min) Final eGFR is calculated based on the CKD-EPI 2020 equation. Sodium 06/14/2024 07:57:22 142 135-146 (m mol/L) Final Potassium 06/14/2024 07:57:22 4.1 3.5-5.1 (m mol/L) Final Cl 06/14/2024 07:57:22 104 98-107 (mm ol/L) Final CO2 06/14/2024 07:57:22 28 22-32 (mmo l/L) Final Anion gap 06/14/2024 07:57:22 10 7-15 (mmol /L) Final Glucose 06/14/2024 07:57:22 80 70-120 (mg /dL) Final Albumin 06/14/2024 07:57:22 4.1 3.8-5.0 (g /dL) Final AST (Aspartate aminotransferase) 06/14/2024 07:57:22 20 10-35 (U/L) Final Alk Phos 06/14/2024 07:57:22 115 35-130 (U/ L) Final Bilirubin, Total 06/14/2024 07:57:22 0.7 <=1 .2 (mg/dL) Final Calcium 06/14/2024 07:57:22 9.8 8.4-10.2 ( mg/dL) Final Protein 06/14/2024 07:57:22 6.6 6.0-8.3 (g /dL) Final ALT (Alanine aminotransferase) 06/14/2024 07:57:22 20 10-35 (U/L) Final Performing Location [facility] [place] [address] [facility] [address]
--- OUTSIDE RECORDS SUMMARY | 2024-07-17 17:13 | External Medical Summary | Summary of Care ---
Author Name Unknown Organization [facility] Address [address] [place] [address] Phone [phone] Care Team Providers Care Mediation Commissioner Name Role Phone Martell Webster MD Primary Care Provider [phone] Reason for Visit * Reason Comments Physical-Exam Patient is here toda y for a yearly physical. Patient states no concerns today. Encounter Details Date Type Department Care Team (Late st Contact Info) Description 07/01/2024 2:20 PM EDT Office Visit [facility] [address] [phone] Martell Webster MD [address] [facility] [place] [address] Seborrheic dermatitis of scalp* Allergies Active Allergy Reactions Criticality Noted Date Comments Sulfa Antibiotics 06/10/1999 hives documented as of this encounter (statuses as of 07/02/2024) Medications MULTIVITAMINS PO TABS daily 0 8 Active Clobetasol Propionate 0.05 % External Ointment (Temovate)Indica tions:Alopecia areata Apply 2x daily to areas of scalp itch when needed 60 g 5 Active Ketoconazole 2 % External CreamIndications :Seborrheic dermatitis of scalp Massage into scalp and rinse out after 5-10 minutes, 3x weekly. Can use own shampoo afterwards if desired. 60 g 2 5 Active Triamterene-HCTZ 37.5-25 MG Oral Capsule (Dyazide)Indicat ions:Essential hypertension with goal blood pressure less than 140/90 TAKE 1 CAPSULE BY MOUTH IN THE MORNING 90 Capsule 5 Active Metoprolol Succinate ER 25 MG Oral Tablet Extended Release 24 Hour (toPROL XL)Indications:E ssential hypertension with goal blood pressure less than 140/90 TAKE 1 TABLET BY MOUTH IN THE MORNING 90 Tablet 5 Active Rogaine Womens 5 % External Foam (Minoxidil)Indic ations:Alopecia areata Apply topically to affected area daily. Apply to affected area of scalp daily 60 g 11 4 025 Discontin ued(Patie nt preferenc e/discont inuation) documented as of this encounter (statuses as of 07/02/2024) Active Problems Problem Noted Date Diagnosed Date HTN, goal below 130/80 07/01/2024 Migraine without aura and wi thout status migrainosus, not intractable 04/08/2019 Vitamin D deficiency 01/09/2014 Urinary frequency 12/03/2004 Migraine documented as of this encounter (statuses as of 07/02/2024) Resolved Problems Problem Noted Date Diagnosed Date Resolved Date Laceration of left middle fi nger with foreign body without damage to nail 04/10/2020 04/10/2020 ADVANCE DIRECTIVE INFORMATION 02/20/2008 02/01/2024 Overview (02/20/2008): No, Advance Directive brochure given to patient at prior appointment. ACUTE CYSTITIS 12/03/2004 05/25/2008 Overview (05/25/2008): Resolved per Benign Acute Dxs Protocol #3 Dysuria 12/03/2004 07/01/2024 ACUTE SINUSITIS NOS 05/31/1999 05/18/19 09 Overview (05/18/2008): Resolved per Benign Acute Dxs Protocol #3 HTN, goal below 140/90 07/01 Diarrhea 07/01/2024 documented as of this encounter (statuses as of 07/02/2024) Immunizations Name Administration Dates Next Due COVID-19 mRNA, LNP-s, No Pre serve, 2-Dose Series (Moderna) 06/09/2020,04/29/2020 COVID-19, mRNA, LNP-s, PF, B ooster, 100mcg/0.5mg (Moderna) 01/09/2024,01/25/2021 PPD 12/10/2018 Pneumococcal Conjugate Vacci ne, 20-valent ([id number]) 07/18/2022 Respiratory Syncytial Virus (RSV) Vaccine, unspecified (Brand of vaccine unknown) 02/08/2023 Seasonal Influenza Vac., MDV , IM, [...] the money to buy more. Never true 07/01/19 25 Within the past 12 months, t he food you bought just didn't last and you didn't have money to get more. Never true 06/30/2024 Childcare Answer Date Recorded Do you feel overwhelmed with taking care of a child, family member or friend? No 06/30/2024 Does your family need help f inding childcare? (Household - for ages 0-17 years) Not on file 06/30/2024 Clothing Answer Date Recorded Have you been unable to get clothing when it was really needed? No 06/30/2024 Is your family able to get c lothes or diapers when needed? (Household - for ages 0-17 years) Not on file 06/30/2024 Personal Safety Answer Date Recorded Do you feel unsafe or have concerns for your saf ety? No 06/30/2024 Do you have concerns for you r family's safety? (Household - for ages 0-17 years) Not on file 06/30/2024 Utilities Answer Date Recorded Do you have trouble paying y our heating, water, or electric bill? No 06/30/2024 Is your family able to pay t he heat, water, or electric bill? (Household - for ages 0-17 years) Not on file 06/30/2024 Does your family have access to good internet? (Household - for ages 0-17 years) Not on file 06/30/2024 Employment Status Answer Date Recorded Are you unemployed or without regular income? No 06/30/2024 Does the household have a re gular source of income? (Household - for ages 0-17 years) Not on file 06/30/2024 Social Connections Answer Date Recorded How often do you feel lonely or isolated from th ose around you? Never 06/30/2024 Financial Resource Strain Answer Date R ecorded Do you have any trouble payi ng for your medications, or do you think you might in the future? No 06/30/2024 Does your family have troubl e paying for medicine? (Household - for ages 0-17 years) Not on file 06/30/2024 Transportation Needs Answer Date Record ed Do you have trouble getting a ride to medical visits or work? (Adult - for ages 18 years and over) Not on file 06/30/2024 Does your family have a hard time getting a ride to doctors visits? (Household - for ages 0-17 years) Not on file 06/30/2024 Has lack of transportation k ept you from medical appointments, meetings, work, or from getting things needed for daily living? Check all that apply. No 06/30/2024 Do you (or your family) have trouble finding or paying for a ride (transportation)? (Household - for ages 0-17 years) Not on file 06/30/2024 Housing Stability Answer Date Recorded Do you currently live in a s helter or have no steady place to sleep at night? No 06/30/2024 Do you think you are at risk of becoming homeless? (Adult - for ages 18 years and over) Not on file 06/30/2024 Does your family worry about paying for your home or becoming homeless? (Household - for ages 0-17 years) Not on file 0 06/30/2024 Are you homeless or worried that you might be in the future? No 06/30/2024 Are you (or your family) derek eless or worried that you might be in the future? (Household - for ages 0-17 years) Not on file Food Insecurity Answer Date Recorded Within the past 12 months, y ou worried that your food would run out before you got the money to buy more. Never true 07/01/19 25 Within the past 12 months, t he food you bought just didn't last and you didn't have money to get more. Never true 06/30/2024 Do you need food for this week? 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 Not on file Not on file Not on olive e documented as of this encounter Last Filed Vital Signs Vital Sign Reading Time Taken Comments Blood Pressure 106/89 07/01/2024 2:18 PM EDT Aut omatic Pulse 92 07/01/2024 2:18 PM EDT Temperature 36.7 °C (98.1 °F) 07/01/2024 2:18 PM ED T Respiratory Rate 18 07/01/2024 2:18 PM EDT Oxygen Saturation 97% 07/01/2024 2:18 PM EDT Inhaled Oxygen Concentration - - Weight 85.1 kg (187 lb 11.2 oz) 07/01/2024 2:18 PM EDT Height 157 cm (5' 1.81") 07/01/2024 2:18 PM EDT Body Mass Index 34.54 07/01/2024 2:18 PM EDT documented in this encounter Progress Notes * Martell Webster MD - 07/01/2024 4:48 PM EDT Subjective: Winter Pritchard is a 68 year old female. Chief Complaint Patient presents with Physical-Exam Patient is here today for a yearly physical. Patient states no concerns today. HPI: 68 yo for annual PEX. Known hx of miuld HTN/ migraine/ vit D def. More recently had developed alopecia areata. Ultimately she saw dermatology. Clobetasol prescribed but never used as she was already noting improvement. Stress/ anxiety very well could have contributed. Derm thought she had mild dandruff (seborrheic dermatitis). Ketaconazole 2 % shampoo prescribed . Doing better. No issues with chest pain/ heart racing/ indigestion/ leg swelling. Had what sounds like likely influenza A infection about 6 weeks ago. Still with nagging cough. No SOB. Patient Active Problem List Diagnosis Urinary frequency HTN, goal below 140/90 Migraine Vitamin D deficiency Migraine without aura and without status migrainosus, not intractable Current Outpatient Medications Medication Sig Dispense Refill MULTIVITAMINS PO TABS daily 0 Clobetasol Propionate 0.05 % External Ointment (Temovate) Apply 2x daily to areas of scalp itch when needed 60 g 0 Ketoconazole 2 % External Cream Massage into scalp and rinse out after 5-10 minutes, 3x weekly. Canuse own shampoo afterwards if desired. 60 g 2 Triamterene-HCTZ 37.5-25 MG Oral Capsule (Dyazide) TAKE 1 CAPSULE BY MOUTH IN THE MORNING 90 Capsule 0 Metoprolol Succinate ER 25 MG Oral Tablet Extended Release 24 Hour (toPROL XL) TAKE 1 TABLET BY MOUTH IN THE MORNING 90 Tablet 0 No current facility-administered medications for this visit. Review of patient's allergies indicates: Allergen Reactions Sulfa Antibiotics hives Objective: BP 106/89 (BP Site: Left Arm, BP Position: Sitting, BP Cuff Size: Regular) Comment: Automatic | Pulse 92 | Temp 98.1 °F (36.7 °C) (Tympanic) | Resp 18 | Ht 5' 1.81" (1.57 m) | Wt 187 lb 11.2 oz (85.1 kg) | LMP 06/25/2010 | SpO2 97% | BMI 34.54 kg/m² | BSA 1.93 m² Physical Exam: CONST: alert, pleasant, no acute distress HEAD: normocephalic, atraumatic NECK: supple, soft, no adenopathy EARS: canals normal, TMs normal Eyes - PERRLA, EOM'I OROPHARYNX: clear, no swelling or erythema, moist CV: regular rate and rhythm, no murmur CHEST: clear to auscultation bilaterally, no rales or wheezing ABD: soft, non tender, non distended, no masses or hepatosplenomegaly EXT: no edema, no joint swelling or deformities, NEURO: AAOx3, no gross focal deficits, cerebellar signs normal, affect appropriate MENTAL STATUS: no evidence of thought disorder, no delusional thought, no evidence of paranoia, thought is non-tangential. SKIN: no rash or significant lesions Results for orders placed or performed in visit on 06/14/24 COMPREHENSIVE METABOLIC PANEL Result Value Ref Range BUN 8 6 - 20 mg/dL CREATININE 0.8 0.5 - 1.0 mg/dL EGFR 83 >=60 mL/min SODIUM 142 135 - 146 mmol/L POTASSIUM 4.1 3.5 - 5.1 mmol/L CHLORIDE 104 98 - 107 mmol/L CO2 28 22 - 32 mmol/L ANION GAP 10 7 - 15 mmol/L GLUCOSE 80 70 - 120 mg/dL Albumin 4.1 3.8 - 5.0 g/dL AST 20 10 - 35 U/L Alkaline Phosphatase 115 35 - 130 U/L Bilirubin, Total 0.7 <=1.2 mg/dL CALCIUM 9.8 8.4 - 10.2 mg/dL Protein 6.6 6.0 - 8.3 g/dL ALT 20 10 - 35 U/L ASSESSMENT/PLAN: HTN - diastolic is up some but she notes at home, diastolic's usually in 70's. She will contimue checking BP at home about every 2 weeks and let me know if diastolic's higher ie in 80's . Cont Triam/HCTZ 25mg daily Seborrheic dermatitis of scalp- may use the Ketaconazole shampoo 1% which is OTC Routine Health Maintenance: encourage Fluvax in Dec. Follow Up: Return in about 1 year (around 07/01/2025) for Return with Physician. | For: Return with Physician Martell Webster MD documented in this encounter Nursing Notes * Daniella Guadalupe LPN - 07/01/2024 2:17 PM EDT The patient has been properly identified by confirmation of name and date of . Chief Complaint Patient presents with Physical-Exam Patient is here today for a yearly physical. Patient states no concerns today. documented in this encounter Plan of Treatment Upcoming Encounters Date Type Department Care Team (Late st Contact Info) Description 07/04/2025 8:20 AM EDT Office Visit [facility] [place] [address] [place] [phone] Martell Webster MD [address] [facility] [place] [address] Scheduled Procedures Name Priority Associated Diagnoses Date/Ti me COLONOSCOPY FLEXIBLE PROXIMA L DIAGNOSTIC Recall Encounter for screening colonoscopy Health Maintenance Due Date Last Done Comments Cologuard 2001 Fecal Occult Blood Test 2001 Sigmoidoscopy 2001 Adult Wellness Visit 2022 COVID-19 Vaccine ( season) 2024 01/09/2024, 01/09/2023, 01/25/2021, Additional history exists Depression Screening 07/20/2024 07/21/2023 Mammogram 12/29/2024 12/30/2023, 11/29, 12/18/2022, Additional history exists GFR 06/14/2025 06/14/2024, 06/29, 07/21/2022, Additional history exists Albumin/Creatinine Ratio 07/21/2025 07/21/2022, 06/29 DXA Scan 08/19/2025 08/19/2022, 08/19/2022 Diabetes Screening 06/15/2027 06/14/2024, 0 07/21/2023, 07/21/2022, Additional history exists Colonoscopy 02/02/2028 02/01/2018, 07/2017, [...] as of this encounter Visit Diagnoses Diagnosis Seborrheic dermatitis of scalp- Primary Other seborrheic dermatitis documented in this encounter Care Teams Mediation Commissioner Relationship Specialty Start Date End Date Martell Webster MD [address] [place] [address] PCP - General 04/03/99 documented as of this encounter
--- OUTSIDE RECORDS SUMMARY | 2024-07-17 17:13 | External Medical Summary | Summary of Care ---
Author Name Unknown Organization [facility] Address [address] [place] [address] Phone [phone] Care Team Providers Care Plastic Welding Machine Operator Name Role Phone Martell Webster MD Primary Care Provider Encounter Details Date Type Department Care Team (Latest Contact Info) Description 04/07/2024 9:09 AM EST - 04/07/2024 11:59 PM [facility] Hospital Encounter Radiology Film File [address] [place] [address] Arrived Discharge Disposition: Home - Self Care Allergies Active Allergy Reactions Criticality Noted Date Comments Sulfa Antibiotics 06/10/1999 hives documented as of this encounter (statuses as of 04/08/2024) Medications MULTIVITAMINS PO TABS daily 0 8 [...] as of this encounter (statuses as of 04/08/2024) Active Problems Problem Noted Date Diagnosed Date Migraine without aura and wi thout status migrainosus, not intractable 04/08/2019 Vitamin D deficiency 01/09/2014 Urinary frequency 12/03/2004 Dysuria 12/03/2004 HTN, goal below 140/90 Diarrhea Migraine documented as of this encounter (statuses as of 04/08/2024) Resolved Problems Problem Noted Date Diagnosed Date [...] as of this encounter (statuses as of 04/08/2024) Immunizations Name Administration Dates Next Due COVID-19 mRNA, LNP-s, No Pre serve, 2-Dose Series (Moderna) 06/09/2020,04/29/2020 COVID-19, mRNA, LNP-s, PF, B ooster, 100mcg/0.5mg (Moderna) 01/09/2024,01/25/2021 PPD 12/10/2018 Pneumococcal Conjugate Vacci ne, 20-valent ([id number]) 07/18/2022 Respiratory Syncytial Virus (Rsv) Vaccine, Unspecified [...] 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 [address] [place] [phone] Martell Webster MD [address] [place] [address] Scheduled Procedures Name Priority Associated Diagnoses Date/Ti [...] study not interpreted or resulted by a [facility] or [employer] contracted radiologist. Muna Rivers PA-C RADIOLOGY (RAD GENERAL ) Final Result documented in this encounter Care Teams Plastic Welding Machine Operator Relationship Specialty Start Date End Date Martell Webster MD PCP - General 04/03/99 documented as of this encounter
--- OUTSIDE RECORDS SUMMARY | 2024-07-17 17:13 | External Medical Summary | Summary of Care ---
Author Name Unknown Organization [facility] Address [address] [facility] [address] Phone [phone] Care Team Providers Care Bulb Assembler Name Role Phone Martell Webster MD Primary Care Provider [phone] Reason for Visit * Reason Comments NEW PATIENT New pt. Here for yakov r loss, first noticed January 2024. Pt is not currently treating with anything. * Evaluate & Treat - Unlimited Visits (Within 30 days (routine)) - Authorized Specialty Diagnoses / Procedures Referred By Grey t Referred To Contact Dermatology Diagnoses Alopecia areata Martell Webster MD [address] [facility] [place] [address] Phone: tel: fax: Referral ID Status Reason Start Date Expiration Date Visits Requested Visits Authorized [id number] Authorized Specialty Services Required 03/01/[phone] Encounter Details Date Type Department Care Team (Late st Contact Info) Description 04/07/2024 9:00 AM EST Office Visit [facility] [address] [place] [phone] Muna Rivers PA-C [address] [place] [address] [place] [address] Alopecia areata*; Seborrheic dermatitis of scalp Allergies [...] PPD 12/10/2018 Pneumococcal Conjugate Vacci ne, 20-valent ([id number]) 07/18/2022 Respiratory Syncytial Virus (Rsv) Vaccine, Unspecified (Use this ONLY If the brand of RSV MAB is not able to be identified) 02/08/2023 Seasonal Influenza Vac., MDV , IM, 0.5 mL (Fluzone) 01/09/2014,01/06/2013,02/02/2012,01/28,02/03/2008,02/03/2007,03/09/2000 ,01/18/1999 Seasonal Influenza Virus Vac cine, Unspecified Formulation 01/12/1998 Seasonal Influenza, PF, 6 M & above, IM , (FluLaval or Fluzone) 12/15/2020,12/23/2019,01/17/2019,01/27,02/09/2017 Seasonal Influenza, Quadriva lent Hd (Fluzone Hd) 01/09/2024,02/01/2022 Seasonal Influenza, Quadriva lent, No Preserve, IM 02/20/2016,01/10/2015 01/11/2016 TD - Tetanus/Diptheria (ADULT) 10/19/2003 TDAP (age 10 and older)(Boostrix) 04/10/2020 TDAP, [...] 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 I have reviewed and agree with the assessment and plan. * Muna Rivers PA-C - 04/07/2024 9:00 AM EST SUBJECTIVE: HPI: Witner Pritchard is a 68 year old female seen at the request of Martell Webster MD for evaluation and treatment of hair loss. Hair loss noticed in 02/20 by hairdresser. Pcp prescribed Rogaine 5% foam [...] NONE Reviewed, same day as visit, 3 [facility] Dermatology lab work(s)/pathology report(s) as well [...] Rivers PA-C 04/07/2024 8:54 AM Dermatology, [facility] [address] [place] [phone] documented in this encounter Nursing Notes * [...] Description 07/11/2024 8:20 AM EDT Office Visit [facility], [place] [place] [phone] Martell Webster MD [address] [place] [address] Scheduled Procedures Name Priority Associated Diagnoses Date/Ti [...] 07/17/2021, Additional history exists Colonoscopy 02/02/2028 02/01/2018, 1107/2017, 10/04/2007 Colorectal Cancer Screening 02/02/2028 Lipid Panel [...] study not interpreted or resulted by a [employer] or [employer] contracted radiologist. Muna Rivers PA-C RADIOLOGY (RAD GENERAL ) Final Result documented in this encounter Visit Diagnoses Diagnosis Alopecia areata- Primary Seborrheic dermatitis of scalp Other seborrheic dermatitis documented in this encounter Care Teams Bulb Assembler Relationship Specialty Start Date End Date Martell Webster MD PCP - General 04/03/99 documented as of this encounter
--- OUTSIDE RECORDS SUMMARY | 2024-07-17 17:13 | External Medical Summary | Summary of Care ---
Author Name Unknown Organization [facility] Address [address] [facility] [place] [address] Phone [phone] Care Team Providers Care Application Analyst Name Role Phone Martell Webster MD Primary Care Provider [phone] Encounter Details Date Type Department Care Team (Late st Contact Info) Description 06/10/2024 Orders Only PATIENT PORTAL DO NOT DELETE THIS DEPT USED BY [place] [id number] Allergies Active Allergy Reactions Criticality Noted Date Comments Sulfa Antibiotics 06/10/1999 hives documented as of this encounter (statuses as of 06/10/2024) Medications MULTIVITAMINS PO TABS daily 0 8 Active Rogaine Womens 5 % External Foam [...] 5 Active Triamterene-HCTZ 37.5-25 MG Oral Capsule (Dyazide)Indicati ons:Essential hypertension with goal blood pressure less than 140/90 TAKE 1 CAPSULE BY MOUTH IN THE MORNING 90 Capsule 5 Active Metoprolol Succinate ER 25 MG Oral Tablet Extended Release 24 Hour (toPROL XL)Indications:Es sential hypertension with goal blood pressure less than 140/90 TAKE 1 TABLET BY MOUTH IN THE MORNING 90 Tablet 5 Active documented as of this encounter (statuses as of 06/10/2024) Active Problems Problem Noted Date Diagnosed Date Migraine without aura and wi thout status migrainosus, not intractable 04/08/2019 Vitamin D deficiency 01/09/2014 Urinary frequency 12/03/2004 Dysuria 12/03/2004 HTN, goal below 140/90 Diarrhea Migraine documented as of this encounter (statuses as of 06/10/2024) Resolved Problems Problem Noted Date Diagnosed Date [...] as of this encounter (statuses as of 06/10/2024) Immunizations Name Administration Dates Next Due COVID-19 mRNA, LNP-s, No Pre serve, 2-Dose Series (Moderna) 06/09/2020,04/29/2020 COVID-19, mRNA, LNP-s, PF, B ooster, 100mcg/0.5mg (Moderna) 01/09/2024,01/25/2021 PPD 12/10/2018 Pneumococcal Conjugate Vacci ne, 20-valent ([id number]) 07/18/2022 Respiratory Syncytial Virus (Rsv) Vaccine, Unspecified [...] 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
--- OUTSIDE RECORDS SUMMARY | 2024-07-17 17:13 | External Medical Summary | Summary of Care ---
Author Name Unknown Organization [facility] Address [address] [place] [address] Phone [phone] Care Team Providers Care Study Assistant Name Role Phone Martell Webster MD Primary Care Provider [phone] Reason for Visit * Reason Comments Outpatient Testing Encounter Details Date Type Department Care Team (Late st Contact Info) Description 06/14/2024 8:00 AM EDT Laboratory Laboratory, [facility] [address] [place] [address] [facility] [address] [place] [address] Essential hypertension with goal blood pressure less than 140/90; Encounter for long-term (current) drug use Allergies Active Allergy Reactions Criticality Noted Date Comments Sulfa Antibiotics 06/10/1999 hives documented as of this encounter (statuses as of 06/14/2024) Medications MULTIVITAMINS PO TABS daily 0 8 [...] as of this encounter (statuses as of 06/14/2024) Active Problems Problem Noted Date Diagnosed Date Migraine without aura and wi thout status migrainosus, not intractable 04/08/2019 Vitamin D deficiency 01/09/2014 Urinary frequency 12/03/2004 Dysuria 12/03/2004 HTN, goal below 140/90 Diarrhea Migraine documented as of this encounter (statuses as of 06/14/2024) Resolved Problems Problem Noted Date Diagnosed Date [...] as of this encounter (statuses as of 06/14/2024) Immunizations Name Administration Dates Next Due COVID-19 mRNA, LNP-s, No Pre serve, 2-Dose Series (Moderna) 06/09/2020,04/29/2020 COVID-19, mRNA, LNP-s, PF, B ooster, 100mcg/0.5mg (Moderna) 01/09/2024,01/25/2021 PPD 12/10/2018 Pneumococcal Conjugate Vacci ne, 20-valent ([id number]) 07/18/2022 Respiratory Syncytial Virus (Rsv) Vaccine, Unspecified [...] 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 Not on file Not on olive e documented as of this encounter Plan of Treatment Upcoming Encounters Date Type Department Care Team (Late st Contact Info) Description 06/29/2024 9:20 AM EDT Office Visit [facility] Christian Jimenez [address] [place] [phone] Martell Webster MD [address] [place] [address] Pending Results Name Type Priority Associated Diagnoses Date /Time COMPREHENSIVE METABOLIC PANEL Lab Routine Essential hypertension with goal blood pressure less than 140/90 Encounter for long-term (current) drug use 06/14/2024 7:57 AM EDT Scheduled Procedures Name Priority Associated Diagnoses Date/Ti [...] as of this encounter Visit Diagnoses Diagnosis Essential hypertension with goal blood pressure less than 140/90 Encounter for long-term (current) drug use Encounter for long-term (current) use of other medications documented in this encounter Care Teams Study Assistant Relationship Specialty Start Date End Date Martell Webster MD [address] [place] [address] PCP - General 04/03/99 documented as of this encounter
--- OUTSIDE RECORDS SUMMARY | 2024-07-17 17:13 | External Medical Summary | Summary of Care ---
Author Name Unknown Organization [facility] Address [address] [place] [address] Phone [phone] Care Team Providers Care Marketing Education Teacher Name Role Phone Martell Webster MD Primary Care Provider [phone] Reason for Referral * Evaluate & Treat - Unlimited Visits (Within 30 days (routine)) - Authorized Specialty Diagnoses / Procedures Referred By Grey oneill Referred To Contact Dermatology Diagnoses Alopecia areata Martell Webster MD [address] [facility] [place] [address] Phone: tel: fax: Referral ID Status Reason Start Date Expiration Date Visits Requested Visits Authorized [id number] Authorized Specialty Services Required 03/01/2024 999 999 Question Answer Referral Priority Within 30 days (routine) Where should this appointment be scheduled? [facility] Are you referring the patient for Mohs Surgery and have a current positive skin cancer biopsy result? No What is the reason for the patient referral? Hair Loss Comments Alopecia areata Reason for Visit * Reason Comments Follow Up Patient is here toda y for a follow up. Patient states she has concerns of losing "chunks" of hair loss. Patient states she was recommended by her architecture department chair to have it checked due to there being a couple patches. Encounter Details Date Type Department Care Team ([facility] Contact Info) Description 03/01/2024 8:20 AM EST [facility] [place] [address] Martell Webster MD [address] [place] [address] Alopecia areata* Allergies Active Allergy Reactions Criticality Noted Date Comments Sulfa Antibiotics 06/10/1999 hives documented as of this encounter (statuses as of 03/01/2024) Medications MULTIVITAMINS PO TABS daily 0 8 Active Metoprolol Succinate ER 25 MG Oral Tablet Extended Release 24 Hour (toPROL XL)Indications:E ssential hypertension with goal blood pressure less than 140/90 Take 1 Tablet by mouth in the morning. In the morning.. 90 Tablet 3 4 Active Triamterene-HCTZ 37.5-25 MG Oral Capsule (Dyazide)Indicat ions:Essential hypertension with goal blood pressure less than 140/90 Take 1 Capsule by mouth in the morning. 90 Capsule 3 4 Active Rogaine Womens 5 % External Foam (Minoxidil)Indic ations:Alopecia areata Apply topically to affected area daily. Apply to affected area of scalp daily 60 g 11 4 Active COVID-19 mRNA Vaccine 12 years and above Geron 30 MCG/0.3 ML IM SUSP Inject into a large muscle. 0.3 mL 3 03/01/20 24 Discontin ued(Medic ation List Clean Up) documented as of this encounter (statuses as of 03/01/2024) Active Problems Problem Noted Date Diagnosed Date Migraine without aura and wi thout status migrainosus, not intractable 04/08/2019 Vitamin D deficiency 01/09/2014 Urinary frequency 12/03/2004 Dysuria 12/03/2004 HTN, goal below 140/90 Diarrhea Migraine documented as of this encounter (statuses as of 03/01/2024) Resolved Problems Problem Noted Date Diagnosed Date [...] as of this encounter (statuses as of 03/01/2024) Immunizations Name Administration Dates Next Due COVID-19 mRNA, LNP-s, No Pre serve, 2-Dose Series (Moderna) 06/09/2020,04/29/2020 COVID-19, mRNA, LNP-s, PF, B ooster, 100mcg/0.5mg (Moderna) 01/25/2021 PPD 12/10/2018 Pneumococcal Conjugate Vacci ne, 20-valent ([id number]) 07/18/2022 Seasonal Influenza Vac., MDV , IM, 0.5 mL (Fluzone) 01/09/2014,01/06/2013,02/02/2012,01/28,02/03/2008,02/03/2007 Seasonal Influenza, PF, 6 M & above, IM , (FluLaval or Fluzone) 12/15/2020,12/23/2019,01/17/2019,01/27,02/09/2017 Seasonal Influenza, Quadriva lent Hd (Fluzone Hd) 02/01/2022 Seasonal Influenza, Quadriva lent, No Preserve, IM [...] 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 on file Not on olive e documented as of this encounter Last Filed Vital Signs Vital Sign Reading Time Taken Comments Blood Pressure 131/81 03/01/2024 8:16 AM EST Pulse 76 03/01/2024 8:16 AM EST Temperature 36.5 °C (97.7 °F) 03/01/2024 8:16 AM ES T Respiratory Rate 16 03/01/2024 8:16 AM EST Oxygen Saturation 99% 03/01/2024 8:16 AM EST Inhaled Oxygen Concentration - - Weight 84.5 kg (186 lb 3.2 oz) 03/01/2024 8:16 A M EST Height 157.5 cm (5' 2") 03/01/2024 8:16 AM EST Body Mass Index 34.06 03/01/2024 8:16 AM EST documented in this encounter Progress Notes * Martell Webster MD - 03/01/2024 9:03 AM EST Subjective: Winter Pritchard is a 68 year old female. Chief Complaint Patient presents with Follow Up Patient is here today for a follow up. Patient states she has concerns of losing "chunks" of hair loss. Patient states she was recommendedby her architecture department chair to have it checked due to there being a couple patches. HPI: 68-year-old seen today because of hair loss. This really isn't noted so much by the patient but by her hairdresser. She was told in August of 2020 at about the same time she had knee replacement surgery Um that she had some hair loss. Her hairdresser has more recently told her the same. She has been under a lot of stress not so much with her health but worrying more about her 's health as he was diagnosed with cardiac amyloid. She would really has not tried anything consistently for the hair loss. Patient Active Problem List Diagnosis Urinary frequency Dysuria HTN, goal below 140/90 Diarrhea Migraine Vitamin D deficiency Migraine without aura [...] Allergen Reactions Sulfa Antibiotics hives Objective: BP 131/81 (BP Site: Right Arm, BP Position: Sitting, BP Cuff Size: Regular) | Pulse 76 | Temp 97.7 °F (36.5 °C) (Tympanic) | Resp 16 | Ht 5' 2" (1.575 m) | Wt 186 lb 3.2 oz (84.5 kg) | LMP 06/25/2010 | SpO2 99% | BMI 34.06 kg/m² | BSA 1.92 m² Physical Exam: CONST: alert, pleasant, no acute distress HEAD: normocephalic, atraumatic SKIN: There 3 or 4 small oval areas of partial alopecia over the left parietal scalp. There is a small 1-1/2 cm spot of alopecia over the very tip of the scalp but this may just be where she parts her hair. ASSESSMENT/PLAN: Alopecia areata (Primary) - TSH WITH FREE T4 IF INDICATED; Future; Expected date: 03/01/2024 - Rogaine Womens 5 % External Foam (Minoxidil); Apply topically to affected area daily. Apply to affected area of scalp daily. It is quite possible that her prescription plan will not pay for the topical minoxidil. Then she has the option of Um getting it [id number]. - DERMATOLOGY REFERRAL OP Martell Webster MD documented in this encounter Nursing Notes * Daniella Guadalupe LPN - 03/01/2024 8:16 AM EST The patient has been properly identified by confirmation of name and date of . Chief Complaint Patient presents with Follow Up Patient is here today for a follow up. Patient states she has concerns of losing "chunks" of hair loss. Patient states she was recommendedby her architecture department chair to have it checked due to there being a couple patches. documented in this encounter Plan of Treatment Upcoming Encounters Date Type Department Care Team (Late st Contact Info) Description 03/01/2024 10:20 AM EST Laboratory [facility], [place] [address] [place] [address] [facility] [address] [place] [address] [place] [address] Alopecia areata 06/30/2024 2:00 PM EDT Office Visit Dermatology, [place] [address] [place] [address] Muna Rivers PA-C [address] [place] [address] [place] [address] 07/11/2024 8:20 AM EDT Office [facility] [place] [address] Martell Webster MD [address] [facility] [place] [id number] Pending Results Name Type Priority Associated Diagnoses Date /Time TSH WITH FREE T4 IF INDICATED Lab Routine Alopecia areata 03/01/2024 9:19 AM EST Scheduled Orders Name Type Priority Associated Diagnoses Orde r Schedule TSH WITH FREE T4 IF INDICATED Lab Routine Alopecia areata Expected: 03/01/2024 (Approximate), Expires: 03/01/2025 Scheduled Procedures Name Priority Associated Diagnoses Date/Ti me COLONOSCOPY FLEXIBLE PROXIMA L DIAGNOSTIC Recall Encounter for screening colonoscopy Scheduled Referrals Name Type Priority Associated Diagnoses Orde r Schedule DERMATOLOGY REFERRAL OP Referral Within 30 days (routine) Alopecia areata Ordered: 03/01/2024 Health Maintenance Due Date Last Done Comments Cologuard 2001 Fecal Occult Blood Test 2001 Sigmoidoscopy 2001 Adult Wellness Visit 2022 COVID-19 Vaccine ( season) 2023 01/09/2023, 01/25/2021, 06/09/2020, Additional history exists Influenza Vaccine (FLU shot) (#1) 2023 01/09/2023, 02/01/2022, 12/15/2020, Additional history exists Depression Screening 07/20/2024 07/21/2023 [...] (Done elsewhere), Additional history exists Pneumococcal Vaccine: 65+ Years Completed 07/18/2022 HPV (Gardasil) Vaccine Aged Out No lo [...] as of this encounter Visit Diagnoses Diagnosis Alopecia areata- Primary Alopecia areata documented in this encounter Care Teams Marketing Education Teacher Relationship Specialty Start Date End Date Martell Webster MD [address] [place] [address] PCP - General 04/03/99 documented as of this encounter
--- OUTSIDE RECORDS SUMMARY | 2024-07-17 17:14 | External Medical Summary ---
Author Name Unknown Address Unknown Organization [id number]:[facility] - [address] [place] [address] Laboratory Report Ordering Provider Test Date Status IVAN ALDANA 03/01/2024 09:19:37 Final Observation Date Value Abnormality Reference (Units ) Status TSH 03/01/2024 09:19:37 2.60 0.27-4.20 (uIU/mL) Final Performing Location LABORATORY C - [address] [place] [address]
--- OUTSIDE RECORDS SUMMARY | 2024-07-17 17:14 | External Medical Summary | Summary of Care ---
Author Name Unknown Organization [facility] Address [address] [place] [address] Phone [phone] Care Team Providers Care Seed Laboratory Technician Name Role Phone Martell Webster MD Primary Care Provider [phone] Reason for Visit * Reason Comments Outpatient Testing Encounter Details Date Type Department Care Team (Late st Contact Info) Description 03/01/2024 10:20 AM EST Laboratory Laboratory, [facility] [address] [place] [phone] [place], [facility] [address] [place] [address] Alopecia areata Allergies Active Allergy Reactions Criticality Noted Date [...] the morning. 90 Capsule 3 4 Active Celeste Granados 5 % External Foam (Minoxidil)Indica tions:Alopecia areata Apply topically to affected area daily. 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 Not on file Not on olive e documented as of this encounter Plan of Treatment Upcoming Encounters Date Type Department Care Team (Late st Contact Info) Description 06/30/2024 2:00 PM EDT Office Visit [facility] [address] [place] [address] Muna Rivers PA-C [address] [place] [address] [place] [address] 07/11/2024 8:20 AM EDT Office [facility] [place] [address] [place] [address] [address] Martell Webster MD [address] [place] [address] Pending Results Name Type Priority Associated Diagnoses Date /Time TSH WITH FREE T4 IF INDICATED Lab Routine Alopecia areata 03/01/2024 9:19 AM EST Scheduled Procedures Name Priority Associated Diagnoses Date/Ti [...] of this encounter Visit Diagnoses Diagnosis Alopecia areata documented in this encounter Care Teams Seed Laboratory Technician Relationship Specialty Start Date End Date Martell Webster MD [address] [place] [address] PCP - General 04/03/99 documented as of this encounter
--- NOTE | 2024-07-17 17:42 | Emergency Department Note ---
Impression & Plan Atypical chest pain ED Provider Note Provider: Mike Gonzalez MD CHIEF COMPLAINT: Chest discomfort HISTORY OF PRESENT ILLNESS: Patient is a 68-year-old female healthy although history of migraines presenting here today reporting onset at 1 PM to 1:30 PM monitoring anything particular strenuous developed mid chest discomfort rating to the back and a bit to the left arm and into the abdomen. A pressure sensation she could get rid of. Did not change with movement or walking. No shortness of breath. A bit of nausea but no vomiting. No trauma. No syncope. No history of similar. Did have stress test several years ago prior to knee replacement. Denies recent travel or leg swelling. Did take some Tums without improvement of symptoms. Did lay down but could not get comfortable. States at this time almost totally resolved with only just slight pressure. Feeling much improved. Talked with her daughter who is a doctor and recommend she come here for evaluation. Patient denies any cardiac history. PAST MEDICAL HISTORY: As noted above MEDICATIONS: Reviewed with her home medications FMH: No significant cardiac history reported SOCIAL HISTORY: Non-smoker PHYSICAL EXAM: GENERAL: alert and oriented in no acute distress on stretcher Head: normocephalic and atraumatic EYES: No injection, discharge or icterus. NECK: Trachea midline. ENT: Mucous membranes pink and moist. LUNGS: Airway patent. No retractions. Breath sounds clear with good air entry bilaterally. HEART: Regular rate and rhythm. No chest wall tenderness ABDOMEN: Soft and non-tender, without guarding or rebound. SKIN: Acyanotic, warm, dry, without rashes EXTREMITIES: Without swelling, tenderness or deformity NEUROLOGICAL: No focal deficits. No aphasia. No facial droop or slurred speech. Ambulatory. EK bpm normal sinus rhythm. No PVC or PAC. No acute ST segment elevation or depression with some anterior T wave inversions. QTc 460. CONTINUOUS CARDIAC MONITORING: was ordered and showed a heart rate of 80s to 90s bpm in normal sinus rhythm Patient's laboratory studies and imaging reviewed. Differential includes Cardiac ischemia, aortic dissection, pulmonary embolism, pneumothorax, pneumonia, pericarditis, myocarditis, esophageal rupture, GERD, cholecystitis, pancreatitis, musculoskeletal, as well as other pathologies. IMPRESSION/MEDICAL DECISION MAKING: Patient without findings of STEMI on EKG upon arrival. Minimal symptoms now. Given a dose of full dose aspirin here. No significant risk factors other than age no family history reported. Symptoms are very concerning for possible cardiac symptoms. Was not reproducible with movement or palpation. No severe ripping pain or severe hypertension and doubt dissection. No recent travel or leg swelling or hypoxia or significant shortness of breath and doubt PE. Less likely to be esophageal/gastric in nature and did improve with Tums previously. Labs are sent and EKG will be obtained. Blood work here without significant anemia or leukocytosis. Normal electrolytes. Normal renal function. No transaminitis or signs of hepatitis/pancreatitis. Troponin undetectable which is initially reassuring but her story is quite concerning. Heart score with highly concerning story is for with her age. Discussed with patient and these findings. Still with some very slight smoldering pressure. Again doubt this represents PE. Recommend we further observe her here for cardiac evaluation and repeat troponins. DIAGNOSIS: Atypical chest pain DISPOSITION: Hospitalist will evaluate Patient was agreeable with this plan. Past Med/Surg History Problem List (Updated 07/17/24 @ 19:27 by Mike Gonzalez M.D.) Atypical chest pain (Acute) Right knee DJD Encounter for pre-operative examination S/P total knee arthroplasty Left knee DJD Medical History GERD (gastroesophageal reflux disease) controlled, stable per pt, diet controlled History of COVID-19 11/21/21 - headache, fatigue, body aches - home test-denies hospitalization- states fully resolved Hypertension controlled, stable per pt Migraine headache Obesity Surgical History History of arthroplasty of right knee 09/07/2020 [facility]: SAB at L3-L4 1 attempt + PNB. History of cataract surgery rt History of colonoscopy History of esophagogastroduodenoscopy (EGD) History of sacrocolpopexy Stella History of total left knee replacement Hx of foot surgery left foot hammer toe Hx of oral surgery for abcess root canal Hx of total hysterectomy laparoscopic Family History Other Osteoarthritis Social History Smoking Status: Never smoker Second Hand Exposure: Yes (hx many years ago); Do You Dip or Chew Tobacco: No; Hx Alcohol Use: Yes Alcohol type: beer Hx Substance Use: No Preferred Language: Fijian Communication Ability: Effective Visual Impairment: No Limitations Hearing Ability: Normal It Coordinator Required: No Beliefs That Will Affect Care: None marital status: Current Living Situation: Family current occupational status: employed Feels Safe at Home: Yes Assistive Devices: Contacts Allergies Allergies Allergy/AdvReac Type Severity Reaction Status Date / Time Sulfa (Sulfonamide Allergy Intermediate HIVES Verified 07/17/24 19:18 Antibiotics) Home Meds Home Medications Medication Instructions Recorded Confirmed triamterene 37.5 1 tab PO QAM 12/04/17 07/17/24 mg-hydrochlorothiazide 25 mg capsule metoprolol succinate 25 mg 25 mg PO QAM 09/05/20 07/17/24 tablet,extended release 24 hr [id number] carb-vit K 1 tab PO QAM 07/17/24 07/17/24 18 mg iron-400 mcg-500 mg tablet Results & Data (ED) Vital Signs Vital Signs - 24 hr 07/17/24 17:12 07/17/24 17:21 07/17/24 17:57 Temperature 36.6 C Temperature Source Oral Pulse Rate 95 H 89 Pulse Rate [Apical] 95 H Pulse Strength [Apical] Respiratory Rate 16 17 Respiratory Effort / Characteristics Non-Labored Spontaneous Respiratory Depth Normal Respiratory Pattern Regular Blood Pressure 125/87 Blood Pressure [Right Arm] 123/96 Blood Pressure Mean 99 Blood Pressure Mean [Right Arm] 105 Pulse Oximetry 99 96 Oxygen Delivery Method Room Air Sepsis Recent Fever Within 48 Hours No Sepsis New/Unexplained Change in Mental Status No Sepsis Action Taken by Nursing No Action Required 07/17/24 18:30 Temperature Temperature Source Pulse Rate Pulse Rate [Apical] 90 Pulse Strength [Apical] Normal Respiratory Rate 18 Respiratory Effort / Characteristics Non-Labored Spontaneous Respiratory Depth Normal Respiratory Pattern Blood Pressure Blood Pressure [Right Arm] 121/90 Blood Pressure Mean Blood Pressure Mean [Right Arm] 100 Pulse Oximetry 98 Oxygen Delivery Method Room Air Sepsis Recent Fever Within 48 Hours Sepsis New/Unexplained Change in Mental Status Sepsis Action Taken by Nursing Laboratory Data 07/17/24 17:25 07/17/24 17:25 Lab Results 07/17/24 Range/Units 17:25 WBC 10.67 (4.8-10.8) K/ul RBC 4.88 (4.20-5.40) M/uL Hgb 14.5 (12.0-16.0) g/dl Hct 43.8 (37.0-47.0) % MCV 89.8 (80.0-100.0) fL MCH 29.7 (25.0-34.0) pg MCHC 33.1 (32.0-36.0) g/dL RDW Std Deviation 43.9 (36.4-46.3) fL RDW Coeff of Ravinder 13.4 (11.5-14.5) % Plt Count 183 (130-400) K/uL MPV 10.6 (9.4-12.4) fL Immature Gran % (Auto) 0.7 % Neut % (Auto) 83.0 % Lymph % (Auto) 9.2 % [place] % (Auto) 5.6 % Eos % (Auto) 1.2 % Baso % (Auto) 0.3 % Neut # (Auto) 8.85 H (1.40-6.50) K/uL Lymph # (Auto) 0.98 L (1.20-3.40) K/uL [place] # (Auto) 0.60 H (0.11-0.59) K/uL Eos # (Auto) 0.13 (0.00-0.50) K/uL Baso # (Auto) 0.03 (0.00-0.20) K/uL Immature Gran # (Auto) 0.08 (0.01-0.20) K/uL PT 10.5 (9.0-12.0) Seconds INR 1.0 (0.9-1.1) APTT 25 (21-31) Seconds PTT Ratio 0.9 Sodium 137 (136-145) mmol/L Potassium 3.5 (3.5-5.1) mmol/L Chloride 102 (98-107) mmol/L Carbon Dioxide 31 (21-32) mmol/L Anion Gap 4 (3-11) BUN 12 (6-23) mg/dl Creatinine 0.79 (0.6-1.2) mg/dl Est Cr Clr Drug Dosing 64.7 ml/min eGFR 81.93 BUN/Creatinine Ratio 15.2 (10-20) Glucose 112 H (70-99(Fasting)) mg/dl Calcium 10.1 (8.6-10.3) mg/dl Total Bilirubin 0.6 (0.2-1.0) mg/dl AST 35 (13-39) U/L ALT 19 (7-52) U/L Alkaline Phosphatase 99 (34-104) U/L Troponin I High Sens < 2.3 (0-14) pg/ml Total Protein 7.4 (6.0-8.3) gm/dl Albumin 4.4 (3.4-5.0) gm/dl Globulin 3.0 (2.5-4.0) gm/dl Albumin/Globulin Ratio 1.5 (0.9-2) Lipase 50 (11-82) U/L Administered Medications Discontinued Medications Aspirin (Aspirin 81 Mg Chew) 324 mg PO NOW STA Stop: 07/17/24 17:40 Last Admin: 07/17/24 17:46 Dose: 324 mg Documented By: GGG Discharge Plan Visit Data Chief Complaint: Chest Pain Stated Complaint: CHEST PAIN,BACK PAIN ED Provider: Mike Gonzalez Discharge Problem: Atypical chest pain Forms Stand Alone Forms: [facility] Prescriptions Prescriptions: No Action triamterene-hydrochlorothiazid 37.5-25 mg capsule 1 tab PO QAM metoprolol succinate 25 mg Tablet Extended Release 24 Hr 25 mg PO QAM Women's Multivitamin 18 mg iron-400 mcg-500 mg Tablet 1 tab PO QAM Referrals Referrals: aMrtell [place] MD [Primary Care Provider] -
[2024-07-17] MEDS: ASPIRIN 81 MG CHEW PO STA (17:46)
[2024-07-17 17:57] LABS: Basophils # (auto) 0.03 K/uL (0.00-0.20); Basophils % (auto) 0.3 %; Eosinophils # (auto) 0.13 K/uL (0.00-0.50); Eosinophils % (auto) 1.2 %; Hematocrit (blood only) 43.8 % (37.0-47.0); Hemoglobin 14.5 g/dl (12.0-16.0); Immature Granulocytes # (auto) 0.08 K/uL (0.01-0.20); Immature Granulocytes % (auto) 0.7 %; Lymphocytes # (auto) 0.98 K/uL (1.20-3.40); Lymphocytes % (auto) 9.2 %; Mean Corpuscular Hemoglobin 29.7 pg (25.0-34.0); Mean Corpuscular Hgb Conc 33.1 g/dL (32.0-36.0); Mean Corpuscular Volume 89.8 fL (80.0-100.0); Mean Platelet Volume 10.6 fL (9.4-12.4); Monocytes % (auto) 5.6 %; Neutrophils # (auto) 8.85 K/uL (1.40-6.50); Platelet Count 183 K/uL (130-400); RDW Coefficient of Variation 13.4 % (11.5-14.5); RDW Standard Deviation 43.9 fL (36.4-46.3); Red Blood Count 4.88 M/uL (4.20-5.40); White Blood Count 10.67 K/ul (4.8-10.8)
[2024-07-17 18:20] LABS: Alanine Aminotransferase 19 U/L (7-52); Albumin Globulin Ratio 1.5 (0.9-2); Albumin Level 4.4 gm/dl (3.4-5.0); Alkaline Phosphatase 99 U/L (34-104); Anion Gap 4 (3-11); Aspartate Aminotransferase 35 U/L (13-39); BUN Creatinine Ratio 15.2 (10-20); Bilirubin,Total 0.6 mg/dl (0.2-1.0); Blood Urea Nitrogen 12 mg/dl (6-23); Calcium 10.1 mg/dl (8.6-10.3); Carbon Dioxide 31 mmol/L (21-32); Chloride 102 mmol/L (98-107); Creatinine Clr Calc Pharmacy 64.7 ml/min; Glucose 112 mg/dl (70-99(Fasting)); Lipase 50 U/L (11-82); Potassium 3.5 mmol/L (3.5-5.1); Sodium 137 mmol/L (136-145); Total Protein 7.4 gm/dl (6.0-8.3)
[2024-07-17 18:27] LABS: Troponin I High Sensitivity < 2.3 pg/ml (0-14)
[2024-07-17 18:34] LABS: Partial Thromboplastin Ratio 0.9; Partial Thromboplastin Time 25 Seconds (21-31); Prothrombin Time 10.5 Seconds (9.0-12.0)
[2024-07-17 19:53] LABS: Magnesium 2.1 mg/dl (1.7-2.4)
[2024-07-17] MEDS: OPTIRAY 320 125ml IV ONE (20:43)
--- NOTE | 2024-07-17 21:08 | History & Physical Report ---
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 troponin within normal limits and workup negative for cholecystitis, aspirin for CAD prophylaxis until ACS ruled out N.p.o. in anticipation of procedure Check hemoglobin A1c Outpatient follow-up imaging for abnormal CT findings DVT prophylaxis. SCDs Full code Case discussed with Dr. Andersen of General Surgery. He recommends gallbladder ultrasound to rule out cholecystitis. Text document was generated using [employer] voice recognition software. It may contain grammatical or spelling errors. Kindly contact undersigned for clarification of any documentation item in question. History of Present Illness Chief Complaint: Chest pain Primary Care Provider: Martell Webster MD History obtained from patient and records. Medical history significant for hypertension, migraine. This afternoon, patient experienced substernal heaviness going down her left underarm and upper abdomen. Intense back pain radiation. No cough, no SOB. No headache. No unusual exertion except for Easter brunch preparation this morning. No prior episodes. Different from reflux. Patient consulted ER following advice of ER physician daughter. Aspirin administered at the ER. Patient currently comfortable. Medical History as above Surgical History : Hysterectomy, sacrocervicoplexy, bunion surgery Family History : Negative heart disease or blood clots;, COPD, non-Hodgkin's lymphoma, asthma Personal/Social history : Non-smoker, occasional EtOH intake, retired schoolteacher Allergies Allergy/AdvReac Type Severity Reaction Status Date / Time Sulfa (Sulfonamide Allergy Intermediate HIVES Verified 07/17/24 19:18 Antibiotics) Home Medications Medication Instructions Recorded Confirmed Type triamterene 37.5 1 tab PO QAM 12/04/17 07/17/24 History mg-hydrochlorothiazide 25 mg capsule metoprolol succinate 25 mg 25 mg PO QAM 09/05/20 07/17/24 History tablet,extended release 24 hr pkehitrr-ogr-kbyk-FA-Ca carb-vit K 1 tab PO QAM 07/17/24 07/17/24 History 18 mg iron-400 mcg-500 mg tablet Past Med/Surg History Problem List (Updated 07/17/24 @ 21:18 by Titus Lora MD) Chest pain Atypical chest pain (Acute) Right knee DJD Encounter for pre-operative examination S/P total knee arthroplasty Left knee DJD Medical History GERD (gastroesophageal reflux disease) controlled, stable per pt, diet controlled History of COVID-19 11/21/21 - headache, fatigue, body aches - home test-denies hospitalization- states fully resolved Hypertension controlled, stable per pt Migraine headache Obesity Surgical History History of arthroplasty of right knee 09/07/2020 [facility]: SAB at L3-L4 1 attempt + PNB. History of cataract surgery rt History of colonoscopy History of esophagogastroduodenoscopy (EGD) History of sacrocolpopexy Stella History of total left knee replacement Hx of foot surgery left foot hammer toe Hx of oral surgery for abcess root canal Hx of total hysterectomy laparoscopic Family History Other Osteoarthritis Social History Smoking Status: Never smoker Second Hand Exposure: Yes (hx many years ago); Do You Dip or Chew Tobacco: No; Hx Alcohol Use: Yes Alcohol type: beer Hx Substance Use: No Preferred Language: Qatari Communication Ability: Effective Visual Impairment: No Limitations Hearing Ability: Normal Pharmacy Helper Required: No Beliefs That Will Affect Care: None marital status: Current Living Situation: Spouse Current Living Situation Comment: with current occupational status: employed Other Information That Helps Us Care for You: No Feels Safe at Home: Yes Safety Concerns: Feels Safe At This Time Assistive Devices: None Review of Systems Review of Systems: As per HPI, all other systems reviewed and negative Physical Exam Physical Exam: GENERAL: Comfortable, no respiratory distress SKIN: Normal color, warm HEENT: [place] palpebral conjunctivae, no ptosis, moist buccal mucosa NECK : Supple, no tenderness CHEST : CTA, no tenderness HEART : RRR, no obvious murmurs ABDOMEN: Some distention, nontender EXTREMITIES : No LE swelling/tenderness, palpable pulses, no other conspicuous deformities noted NEUROLOGIC : Coherent, no facial asymmetry, no other gross focality Results & Data Results & Data Vital Signs (Past 12 Hours) Vital Signs Temp Pulse Pulse Resp BP BP Pulse Ox 07/17/24 19:31 92 H 16 129/88 96 07/17/24 18:30 90 18 121/90 98 07/17/24 17:57 89 07/17/24 17:21 95 H 17 123/96 96 07/17/24 17:12 36.6 C 95 H 16 125/87 99 O2 Del Method 07/17/24 19:31 Room Air 07/17/24 18:30 Room Air 07/17/24 17:57 07/17/24 17:21 07/17/24 17:12 Room Air Laboratory Results Laboratory Results WBC 10.67 K/ul (4.8-10.8) 07/17/24 17: RBC 4.88 M/uL (4.20-5.40) 07/17/24 17: Hgb 14.5 g/dl (12.0-16.0) 07/17/24 17: Hct 43.8 % (37.0-47.0) 07/17/24 17: MCV 89.8 fL (80.0-100.0) 07/17/24: MCH 29.7 pg (25.0-34.0) 07/17/24: MCHC 33.1 g/dL (32.0-36.0) 07/17/24: RDW Std Deviation 43.9 fL (36.4-46.3) 07/17/24: RDW Coeff of Ravinder 13.4 % (11.5-14.5) 07/17/24 17: Plt Count 183 K/uL (130-400) 07/17/24 17: MPV 10.6 fL (9.4-12.4) 07/17/24 17: Immature Gran % (Auto) 0.7 % 07/17/24 17: Neut % (Auto) 83.0 % 07/17/24 17: Lymph % (Auto) 9.2 % 07/17/24 17: [place] % (Auto) 5.6 % 07/17/24 17: Eos % (Auto) 1.2 % 04/20/25 17:25 Baso % (Auto) 0.3 % 07/17/24 17:25 Neut # (Auto) 8.85 K/uL (1.40-6.50) H 07/17/24 17:25 Lymph # (Auto) 0.98 K/uL (1.20-3.40) L 07/17/24 17:25 [place] # (Auto) 0.60 K/uL (0.11-0.59) H 07/17/24 17:25 Eos # (Auto) 0.13 K/uL (0.00-0.50) 07/17/24 17:25 Baso # (Auto) 0.03 K/uL (0.00-0.20) 07/17/24 17: Immature Gran # (Auto) 0.08 K/uL (0.01-0.20) 07/17/24 17:25 PT 10.5 Seconds (9.0-12.0) 07/17/24: INR 1.0 (0.9-1.1) 07/17/24 17: APTT 25 Seconds (21-31) 07/17/24 17:25 PTT Ratio 0.9 07/17/24 17:25 Sodium 137 mmol/L (136-145) 07/17/24 17:25 Potassium 3.5 mmol/L (3.5-5.1) 07/17/24 17:25 Chloride 102 mmol/L (98-107) 07/17/24 17: Carbon Dioxide 31 mmol/L (21-32) 07/17/24 17:25 Anion Gap 4 (3-11) 07/17/24 17:25 BUN 12 mg/dl (6-23) 07/17/24 17:25 Creatinine 0.79 mg/dl (0.6-1.2) 07/17/24 17:25 Est Cr Clr Drug Dosing 64.7 ml/min 07/17/24 17:25 eGFR 81.93 07/17/24 17:25 BUN/Creatinine Ratio 15.2 (10-20) 07/17/24 17:25 Glucose 112 mg/dl (70-99(Fasting)) H 07/17/24 17:25 Calcium 10.1 mg/dl (8.6-10.3) 07/17/24 17:25 Magnesium 2.1 mg/dl (1.7-2.4) 07/17/24 17:25 Total Bilirubin 0.6 mg/dl (0.2-1.0) 07/17/24 17:25 AST 35 U/L (13-39) 07/17/24 17:25 ALT 19 U/L (7-52) 07/17/24 17:25 Alkaline Phosphatase 99 U/L (34-104) 07/17/24 17:25 Troponin I High Sens 3.4 pg/ml (0-14) 07/17/24 19:17 Total Protein 7.4 gm/dl (6.0-8.3) 07/17/24 17: Albumin 4.4 gm/dl (3.4-5.0) 07/17/24: Globulin 3.0 gm/dl (2.5-4.0) 07/17/24: Albumin/Globulin Ratio 1.5 (0.9-2) 07/17/24: Lipase 50 U/L (11-82) 07/17/24 17:25 Impressions Abdomen/Pelvis CTA 07/17/24 20:23 Exam(s): CTA ABDOMEN + PELVIS With Contrast IV Amt: 119 ml opti 320 EXAM: CT Angiography Abdomen and Pelvis With Intravenous Contrast CLINICAL HISTORY: Abdominal Pain. TECHNIQUE: Axial computed tomographic angiography images of the abdomen and pelvis with intravenous contrast. CTDI is 25.86 mGy and DLP is 2326.27 mGy-cm. Automated exposure control was utilized for the study. A dose lowering technique was utilized adhering to the principles of ALARA. 3D reconstructed images were created and reviewed. CONTRAST: Patient received 119 ml opti 320 of IV contrast COMPARISON: No relevant prior studies available. FINDINGS: VASCULATURE: Aorta: No aortic aneurysm or dissection. Mild atherosclerosis of the aorta. No significant stenosis. Celiac trunk and mesenteric arteries: Approximate 50% stenosis of the origin of the celiac trunk. The SMA and LAMAR are within normal limits. Renal arteries: There is atherosclerosis of the origin of both renal arteries without significant stenosis. Iliac arteries: There is atherosclerosis of the bilateral common, internal and external iliac arteries without significant stenosis. ABDOMEN: Liver: Unremarkable. No mass. Gallbladder and bile ducts: Question cholelithiasis. There is prominence of the gallbladder wall with pericholecystic fluid. This is concerning for acute cholecystitis. Pancreas: Unremarkable. No ductal dilation. No mass. Spleen: Unremarkable. No splenomegaly. Adrenals: Unremarkable. No mass. Kidneys and ureters: Nonobstructing left renal calculus. No hydronephrosis of either kidney. There is a simple appearing left renal cyst, no follow-up is needed. Stomach and bowel: Diverticulosis. No obstruction. No mucosal thickening. PELVIS: Appendix: Normal appendix. Bladder: Unremarkable. No mass. Reproductive: Hysterectomy. ABDOMEN and PELVIS: Intraperitoneal space: Unremarkable. No significant fluid collection. No free air. Bones/joints: No acute fracture. No dislocation. Soft tissues: Unremarkable. Lymph nodes: Unremarkable. No enlarged lymph nodes. IMPRESSION: 1. No aortic aneurysm or dissection. 2. Question cholelithiasis. There is prominence of the gallbladder wall with pericholecystic fluid. This is concerning for acute cholecystitis. 3. 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 4. Nonobstructing left renal calculus. No hydronephrosis of either kidney. 5. Diverticulosis. Electronically signed by: Joycelyn Hidalgo MD 07/17/24 23:20 PM Chest CTA 07/17/24 20:23 Exam(s): CTA CHEST W/WO Contrast IV Amt: 119 ml opti 320 EXAM: CT Angiography Chest Without and With Intravenous Contrast CLINICAL HISTORY: Chest Pain TECHNIQUE: Axial computed tomographic angiography images of the chest without and with intravenous contrast. MIPS images were created and reviewed. CTDI is 25.86 mGy and DLP is 2362.27 mGy-cm. Automated exposure control was utilized for the study. A dose lowering technique was utilized adhering to the principles of ALARA. MIP reconstructed images were created and reviewed. CONTRAST: Patient received 119 ml opti 320 of IV contrast COMPARISON: Chest radiograph 07/17/2024. FINDINGS: Pulmonary arteries: Unremarkable. No pulmonary embolism. 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 Mild atherosclerosis. No aortic aneurysm or dissection. Lungs: Scattered pulmonary nodules measure up to 4 mm. No consolidation. Pleural space: Unremarkable. No significant effusion. No pneumothorax. Heart: Unremarkable. No cardiomegaly. No significant pericardial effusion. No evidence of RV dysfunction. Mediastinum: Small hiatal hernia. Bones/joints: There are degenerative changes of the spine. No acute fracture. Soft tissues: Unremarkable. Lymph nodes: Unremarkable. No enlarged lymph nodes. Gallbladder and bile ducts: Question cholelithiasis. There is prominence of the gallbladder with a brianna-cholecystic fluid. Kidneys and ureters: Nonobstructing left renal calculus. IMPRESSION: 1. No aortic aneurysm or dissection. 2. Question cholelithiasis. There is prominence of the gallbladder with a brianna-cholecystic fluid. Consider further evaluation with gallbladder ultrasound. 3. 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 4. Scattered pulmonary nodules measure up to 4 mm. Fleischner Society Guidelines suggest one should consider a follow-up chest CT at 12 months in low-risk or high-risk patients due to the morphology and/or location of this nodule. If unchanged, no further follow-up is necessary. 5. Small hiatal hernia. 6. Nonobstructing left renal calculus. Electronically signed by: Joycelyn Hidalgo MD 07/17/24 23:19 PM Diagnostic Findings EKG as per my interpretation :
[2024-07-17] MEDS: SODIUM CHLORIDE 0.9% 1,000 ML IV ONE (21:14)
[2024-07-17] MEDS ORDERED: NITROGLYCERIN SL 0.4 MG/TAB TAB SL PRN (21:18)
[2024-07-17] MEDS ORDERED: LORazepam 0.5 MG TAB PO PRN (21:18)
[2024-07-17] MEDS ORDERED: oxyCODONE HCL IR 5 MG TAB (IMMEDIATE RELEASE) PO PRN (21:18)
[2024-07-17] MEDS ORDERED: PROMETHAZINE 6.25 MG/50.25 ML BAG IV PRN (21:18)
[2024-07-17] MEDS ORDERED: ACETAMINOPHEN 325 MG TAB PO PRN (21:18)
--- NOTE | 2024-07-17 23:20 | CT Scan Report ---
Exam(s): CTA CHEST W/WO Contrast IV Amt: 119 ml opti 320 EXAM: CT Angiography Chest Without and With Intravenous Contrast CLINICAL HISTORY: Chest Pain TECHNIQUE: Axial computed tomographic angiography images of the chest without and with intravenous contrast. MIPS images were created and reviewed. CTDI is 25.86 mGy and DLP is 2362.27 mGy-cm. Automated exposure control was utilized for the study. A dose lowering technique was utilized adhering to the principles of ALARA. MIP reconstructed images were created and reviewed. CONTRAST: Patient received 119 ml opti 320 of IV contrast COMPARISON: Chest radiograph 07/17/2024. FINDINGS: Pulmonary arteries: Unremarkable. No pulmonary embolism. 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 Mild atherosclerosis. No aortic aneurysm or dissection. Lungs: Scattered pulmonary nodules measure up to 4 mm. No consolidation. Pleural space: Unremarkable. No significant effusion. No pneumothorax. Heart: Unremarkable. No cardiomegaly. No significant pericardial effusion. No evidence of RV dysfunction. Mediastinum: Small hiatal hernia. Bones/joints: There are degenerative changes of the spine. No acute fracture. Soft tissues: Unremarkable. Lymph nodes: Unremarkable. No enlarged lymph nodes. Gallbladder and bile ducts: Question cholelithiasis. There is prominence of the gallbladder with a brianna-cholecystic fluid. Kidneys and ureters: Nonobstructing left renal calculus. IMPRESSION: 1. No aortic aneurysm or dissection. 2. Question cholelithiasis. There is prominence of the gallbladder with a brianna-cholecystic fluid. Consider further evaluation with gallbladder ultrasound. 3. 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 4. Scattered pulmonary nodules measure up to 4 mm. Fleischner Society Guidelines suggest one should consider a follow-up chest CT at 12 months in low-risk or high-risk patients due to the morphology and/or location of this nodule. If unchanged, no further follow-up is necessary. 5. Small hiatal hernia. 6. Nonobstructing left renal calculus. Electronically signed by: Joycelyn Hidalgo MD 07/17/24 23:19 PM
--- NOTE | 2024-07-17 23:22 | CT Scan Report ---
Exam(s): CTA ABDOMEN + PELVIS With Contrast IV Amt: 119 ml opti 320 EXAM: CT Angiography Abdomen and Pelvis With Intravenous Contrast CLINICAL HISTORY: Abdominal Pain. TECHNIQUE: Axial computed tomographic angiography images of the abdomen and pelvis with intravenous contrast. CTDI is 25.86 mGy and DLP is 2326.27 mGy-cm. Automated exposure control was utilized for the study. A dose lowering technique was utilized adhering to the principles of ALARA. 3D reconstructed images were created and reviewed. CONTRAST: Patient received 119 ml opti 320 of IV contrast COMPARISON: No relevant prior studies available. FINDINGS: VASCULATURE: Aorta: No aortic aneurysm or dissection. Mild atherosclerosis of the aorta. No significant stenosis. Celiac trunk and mesenteric arteries: Approximate 50% stenosis of the origin of the celiac trunk. The SMA and LAMAR are within normal limits. Renal arteries: There is atherosclerosis of the origin of both renal arteries without significant stenosis. Iliac arteries: There is atherosclerosis of the bilateral common, internal and external iliac arteries without significant stenosis. ABDOMEN: Liver: Unremarkable. No mass. Gallbladder and bile ducts: Question cholelithiasis. There is prominence of the gallbladder wall with pericholecystic fluid. This is concerning for acute cholecystitis. Pancreas: Unremarkable. No ductal dilation. No mass. Spleen: Unremarkable. No splenomegaly. Adrenals: Unremarkable. No mass. Kidneys and ureters: Nonobstructing left renal calculus. No hydronephrosis of either kidney. There is a simple appearing left renal cyst, no follow-up is needed. Stomach and bowel: Diverticulosis. No obstruction. No mucosal thickening. PELVIS: Appendix: Normal appendix. Bladder: Unremarkable. No mass. Reproductive: Hysterectomy. ABDOMEN and PELVIS: Intraperitoneal space: Unremarkable. No significant fluid collection. No free air. Bones/joints: No acute fracture. No dislocation. Soft tissues: Unremarkable. Lymph nodes: Unremarkable. No enlarged lymph nodes. IMPRESSION: 1. No aortic aneurysm or dissection. 2. Question cholelithiasis. There is prominence of the gallbladder wall with pericholecystic fluid. This is concerning for acute cholecystitis. 3. 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 4. Nonobstructing left renal calculus. No hydronephrosis of either kidney. 5. Diverticulosis. Electronically signed by: Joycelyn Hidalgo MD 07/17/24 23:20 PM
--- NOTE | 2024-07-18 02:31 | Ultrasound Report ---
EXAM: US gallbladder CLINICAL HISTORY: Abd pain poss cholecystitis on ct TECHNIQUE: Ultrasound examination of the RUQ was performed using a [high-frequency transducer]. Scanning was performed with the patient in supine position. The following structures were specifically evaluated: COMPARISON: NA FINDINGS: Liver: Liver size: [Measurements in length (14.85 cm). Liver appears normal in size with homogeneous echotexture. No evidence of focal lesions, cysts, or masses. Hepatic vasculature appears normal. Gallbladder: Gallbladder: is distended with thickened wall = 4mm with layering echogenic fluid -fluid level with no posterior acoustic shadowing ( biliary sludge ). Minimal pericholecystic fluid noted. Biliary Tree: Common bile duct diameter: [6 mm]. The common bile duct is within normal limits in caliber and not dilated. No evidence of choledocholithiasis or biliary obstruction. Right Kidney: Right kidney size: [Measurements in length (9.3cm) and width (4.6cm)x height ( 4.7)]. The right kidney appears relatively small in size with preserved corticomedullary differentiation. No evidence of hydronephrosis, renal cysts, or masses. IMPRESSION: Ultrasound examination of the Right Upper Quadrant (RUQ): - Distended GB with mild mural thickening and intraluminal biliary sludge; No significant pericholecystic fluid or increased vascularity. Findings might be suggestive of sludge. On the other hand early acute cholecystitis cannot be excluded totally. Clinical correlationand follow up recommended. - Relatively small right kidney. RECOMMENDATIONS: Clinical correlation with symptoms and further evaluation as indicated. Electronically signed by Campos Arteaga 07-18-2024 02:30 AM
[2024-07-18 04:50] LABS: Basophils # (auto) 0.03 K/uL (0.00-0.20); Basophils % (auto) 0.5 %; Eosinophils # (auto) 0.23 K/uL (0.00-0.50); Eosinophils % (auto) 3.9 %; Hematocrit (blood only) 36.6 % (37.0-47.0); Hemoglobin 12.4 g/dl (12.0-16.0); Immature Granulocytes # (auto) 0.02 K/uL (0.01-0.20); Immature Granulocytes % (auto) 0.3 %; Lymphocytes # (auto) 1.51 K/uL (1.20-3.40); Lymphocytes % (auto) 25.5 %; Mean Corpuscular Hemoglobin 30.2 pg (25.0-34.0); Mean Corpuscular Hgb Conc 33.9 g/dL (32.0-36.0); Mean Corpuscular Volume 89.1 fL (80.0-100.0); Mean Platelet Volume 10.4 fL (9.4-12.4); Monocytes # (auto) 0.49 K/uL (0.11-0.59); Monocytes % (auto) 8.3 %; Neutrophils # (auto) 3.63 K/uL (1.40-6.50); Neutrophils % (auto) 61.5 %; Platelet Count 160 K/uL (130-400); RDW Coefficient of Variation 13.4 % (11.5-14.5); RDW Standard Deviation 43.8 fL (36.4-46.3); Red Blood Count 4.11 M/uL (4.20-5.40); White Blood Count 5.91 K/ul (4.8-10.8)
[2024-07-18 05:03] LABS: Alanine Aminotransferase 37 U/L (7-52); Albumin Globulin Ratio 1.4 (0.9-2); Albumin Level 3.4 gm/dl (3.4-5.0); Alkaline Phosphatase 82 U/L (34-104); Anion Gap 4 (3-11); Aspartate Aminotransferase 45 U/L (13-39); BUN Creatinine Ratio 12.7 (10-20); Bilirubin,Total 0.7 mg/dl (0.2-1.0); Blood Urea Nitrogen 9 mg/dl (6-23); Carbon Dioxide 29 mmol/L (21-32); Chloride 107 mmol/L (98-107); Chol HDL Ratio 2.8 (0-5); Cholesterol 150 mg/dl (0-200); Creatinine Clr Calc Pharmacy 77.9 ml/min; Globulin 2.4 gm/dl (2.5-4.0); Glucose 92 mg/dl (70-99(Fasting)); HDL Cholesterol 53 mg/dl; LDL Cholesterol Calculated 86 mg/dl; Potassium 3.3 mmol/L (3.5-5.1); Sodium 140 mmol/L (136-145); Total Protein 5.8 gm/dl (6.0-8.3); Triglycerides 55 mg/dl (0-150); VLDL Cholesterol 11 mg/dl (0-30)
[2024-07-18 05:28] LABS: Partial Thromboplastin Time 26 Seconds (21-31)
[2024-07-18 05:35] LABS: Troponin I High Sensitivity < 2.3 pg/ml (0-14)
[2024-07-18] MEDS: POTASSIUM CHLORIDE CRTAB 20 MEQ TABCR PO STA (06:04)
--- NOTE | 2024-07-18 07:06 | XRay Report ---
EXAM: XR chest 1V portable CLINICAL HISTORY: Chest pain, nonspecific TECHNIQUE: An X-ray image of the chest is obtained in AP projection. COMPARISON: 12/13/2021 FINDINGS: Pulmonary Parenchyma: No evidence of consolidation, collapse, or focal opacities. No pulmonary nodules are identified. No evidence of pleural effusion or pleural thickening. Heart and Mediastinum: Heart size and shape are normal. No mediastinal widening or masses. No hilar or mediastinal lymphadenopathy. Bony Thorax: Bony thorax appears intact without fractures or deformities. Soft Tissues: Soft tissues overlying the chest wall are unremarkable. IMPRESSION: No acute cardiopulmonary abnormalities are identified. Electronically signed by Campos Arteaga 07-18-2024 07:06 AM
[2024-07-18] MEDS: ASPIRIN 81 MG ECTAB PO SCH (07:43)
--- NOTE | 2024-07-18 09:05 | Electrocardiogram Report ---
Test Reason : Blood Pressure : */* mmHG Vent. Rate : 94 BPM Atrial Rate : 94 BPM P-R Int : 182 ms QRS Dur : 92 ms QT Int : 368 ms P-R-T Axes : * -29 -7 degrees QTcB Int : 460 ms Normal sinus rhythm Moderate voltage criteria for LVH, may be normal variant ( R in aVL ) Poor R wave progression, consider anterior IN vs. lead placement vs. LVH Abnormal ECG When compared with ECG of 13-Dec-2021 14:25, Nonspecific T wave abnormality, worse in Inferior leads Inverted T waves have replaced nonspecific T wave abnormality in Anterior leads Confirmed by Vincenzo Piña ([id number]) on 07/18/2024 9:05:15 AM Referred By: REFERRED SELF Confirmed By: Vincenzo Piña
--- NOTE | 2024-07-18 09:10 | Surgery Consultation ---
<Statement entered by Franca Tavera, DO - 07/18/24 13:30> I have seen and examined this patient this am. We will plan for her surgery to be tomorrow. NPO after MN, she may have a low fat diet at this time. Date of Consultation July 18, 2024 Assessment & Plan (1) Chest pain: -Patient admitted for chest pain that started yesterday afternoon. However upon work up there was concern for possible cholecystics on imaging. -Patient was seen on morning rounds with attending surgeon, Dr. Tavera, the patient is resting comfortably in bed, VSS, and is nontoxic appearing. WBC and LFT within normal limits. On exam patient's abdomen is soft, nontender, and nondistended. -Discussed imaging findings with patient that her gallbladder US has concerns for sludge and she ultimately will need cholecystectomy. Due to her symptoms resolving, we did offer discharge with a course of oral abx and outpatient follow up for elective cholecystectomy. However the patient states since she is in the hospital, she would like to have surgery while she's here. -Keep NPO for now -Patient did have dose of ASA last evening in the ED along with another 81mg ASA this morning due to concerns of possible ACS. Will discuss with attending surgeon on OR timing due to ASA administration. History of Present Illness Reason for Consultation: Cholecystitis History of Present Illness Patient is a 68-year-old female who presented to the emergency department last evening with concerns of chest pain. The pain started in the afternoon that did radiate into her back and she had associated nausea without any vomiting. Patient states that over the last few weeks she has had some increased abdominal bloating and indigestion, which is new for her, and has required taking Tums without any relief. She states that when she has pain it does seem to be in her right upper quadrant. The patient was admitted for chest pain and concern for possible acute cholecystics. Patient denies any previous cardiac history. Gallbladder US with findings of sludge and general surgery team was consulted for further evaluation. Patient was seen and evaluated this morning, she is resting comfortably in bed, VSS. Patient currently with no complaints of abdominal pain, N/V. Patient is nontoxic appearing and no abdominal pain on exam. Labs this morning with normal WBC and LFTs. Her past abdominal surgical history includes laparoscopic total hysterectomy. Allergies Allergy/AdvReac Type Severity Reaction Status Date / Time Sulfa (Sulfonamide Allergy Intermediate HIVES Verified 07/17/24 19:18 Antibiotics) Home Medications Medication Instructions Recorded Confirmed Type triamterene 37.5 1 tab PO QAM 12/04/17 07/17/24 History mg-hydrochlorothiazide 25 mg capsule metoprolol succinate 25 mg 25 mg PO QAM 09/05/20 07/17/24 History tablet,extended release 24 hr srtcphxr-dzd-zyje-FA-Ca carb-vit K 1 tab PO QAM 07/17/24 07/17/24 History 18 mg iron-400 mcg-500 mg tablet Patient History Medical History GERD (gastroesophageal reflux disease) controlled, stable per pt, diet controlled History of COVID-19 11/21/21 - headache, fatigue, body aches - home test-denies hospitalization- states fully resolved Hypertension controlled, stable per pt Migraine headache Obesity Surgical History History of arthroplasty of right knee 09/07/2020 [facility], [place]: SAB at L3-L4 1 attempt + PNB. History of cataract surgery rt History of colonoscopy History of esophagogastroduodenoscopy (EGD) History of sacrocolpopexy [place] History of total left knee replacement Hx of foot surgery left foot hammer toe Hx of oral surgery for abcess root canal Hx of total hysterectomy laparoscopic Family History Other Osteoarthritis Social History Smoking Status: Never smoker Second Hand Exposure: Yes (hx many years ago); Do You Dip or Chew Tobacco: No; Hx Alcohol Use: Yes Alcohol type: beer Hx Substance Use: No Preferred Language: Indonesian Communication Ability: Effective Visual Impairment: No Limitations Hearing Ability: Normal Fagoter Required: No Beliefs That Will Affect Care: None marital status: Current Living Situation: Spouse Current Living Situation Comment: with current occupational status: employed Other Information That Helps Us Care for You: No Feels Safe at Home: Yes Safety Concerns: Feels Safe At This Time Assistive Devices: None Review of Systems Constitutional: no fever and no chills Respiratory: no cough, no dyspnea and no wheezing Cardiovascular: no palpitations and no syncope Gastrointestinal: + bloating, + heartburn and + nausea; no vomiting Genitourinary: no dysuria, no urinary hesitancy and no hematuria Physical Exam Constitutional: WD/WN, vitals as above Respiratory: normal respiratory effort, lungs clear to auscultation Cardiovascular: RRR, no murmur, no edema Gastrointestinal (Abdomen): normal bowel sounds, soft, nontender, no hepatosplenomegaly Skin: no rashes, warm and dry Results & Data Vital Signs (Past 12 Hours) Vital Signs Temp Pulse Pulse Resp BP BP Pulse Ox 07/18/24 07:16 36.6 C 69 18 121/79 96 07/18/24 01:03 36.6 C 73 18 130/88 97 07/18/24 00:19 67 18 123/88 94 07/17/24 21:18 87 O2 Del Method 07/18/24 07:16 Room Air 07/18/24 01:03 Room Air 07/18/24 00:19 Room Air 07/17/24 21:18 Diagnostic Findings Exam(s): CTA ABDOMEN + PELVIS With Contrast IV Amt: 119 ml opti 320 EXAM: CT Angiography Abdomen and Pelvis With Intravenous Contrast CLINICAL HISTORY: Abdominal Pain. TECHNIQUE: Axial computed tomographic angiography images of the abdomen and pelvis with intravenous contrast. CTDI is 25.86 mGy and DLP is 2326.27 mGy-cm. Automated exposure control was utilized for the study. A dose lowering technique was utilized adhering to the principles of ALARA. 3D reconstructed images were created and reviewed. CONTRAST: Patient received 119 ml opti 320 of IV contrast COMPARISON: No relevant prior studies available. FINDINGS: VASCULATURE: Aorta: No aortic aneurysm or dissection. Mild atherosclerosis of the aorta. No significant stenosis. Celiac trunk and mesenteric arteries: Approximate 50% stenosis of the origin of the celiac trunk. The SMA and LAMAR are within normal limits. Renal arteries: There is atherosclerosis of the origin of both renal arteries without significant stenosis. Iliac arteries: There is atherosclerosis of the bilateral common, internal and external iliac arteries without significant stenosis. ABDOMEN: Liver: Unremarkable. No mass. Gallbladder and bile ducts: Question cholelithiasis. There is prominence of the gallbladder wall with pericholecystic fluid. This is concerning for acute cholecystitis. Pancreas: Unremarkable. No ductal dilation. No mass. Spleen: Unremarkable. No splenomegaly. Adrenals: Unremarkable. No mass. Kidneys and ureters: Nonobstructing left renal calculus. No hydronephrosis of either kidney. There is a simple appearing left renal cyst, no follow-up is needed. Stomach and bowel: Diverticulosis. No obstruction. No mucosal thickening. PELVIS: Appendix: Normal appendix. Bladder: Unremarkable. No mass. Reproductive: Hysterectomy. ABDOMEN and PELVIS: Intraperitoneal space: Unremarkable. No significant fluid collection. No free air. Bones/joints: No acute fracture. No dislocation. Soft tissues: Unremarkable. Lymph nodes: Unremarkable. No enlarged lymph nodes. IMPRESSION: 1. No aortic aneurysm or dissection. 2. Question cholelithiasis. There is prominence of the gallbladder wall with pericholecystic fluid. This is concerning for acute cholecystitis. 3. 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 4. Nonobstructing left renal calculus. No hydronephrosis of either kidney. 5. Diverticulosis. EXAM: US gallbladder CLINICAL HISTORY: Abd pain poss cholecystitis on ct TECHNIQUE: Ultrasound examination of the RUQ was performed using a [high-frequency transducer]. Scanning was performed with the patient in supine position. The following structures were specifically evaluated: COMPARISON: NA FINDINGS: Liver: Liver size: [Measurements in length (14.85 cm). Liver appears normal in size with homogeneous echotexture. No evidence of focal lesions, cysts, or masses. Hepatic vasculature appears normal. Gallbladder: Gallbladder: is distended with thickened wall = 4mm with layering echogenic fluid -fluid level with no posterior acoustic shadowing ( biliary sludge ). Minimal pericholecystic fluid noted. Biliary Tree: Common bile duct diameter: [6 mm]. The common bile duct is within normal limits in caliber and not dilated. No evidence of choledocholithiasis or biliary obstruction. Right Kidney: Right kidney size: [Measurements in length (9.3cm) and width (4.6cm)x height ( 4.7)]. The right kidney appears relatively small in size with preserved corticomedullary differentiation. No evidence of hydronephrosis, renal cysts, or masses. IMPRESSION: Ultrasound examination of the Right Upper Quadrant (RUQ): - Distended GB with mild mural thickening and intraluminal biliary sludge; No significant pericholecystic fluid or increased vascularity. Findings might be suggestive of sludge. On the other hand early acute cholecystitis cannot be excluded totally. Clinical correlationand follow up recommended. - Relatively small right kidney. RECOMMENDATIONS: Clinical correlation with symptoms and further evaluation as indicated. PG Care Time/CCT Total # of Minutes Spent Total Time Spent with Patient: Total time spent is greater than 50% in coordination of care (as documented) at patient's floor/unit and/or counseling patient: [place] [address] OFFICE CONSULT LVL 05/19M Patient Type New History Problem Focused Exam Problem Focused Medical Decision Making Straight Forward Diagnoses Chest pain R07.9
[2024-07-18 10:19] LABS: Appearance Urine Clear (Clear); Bacteria Urine Automated None Seen (None Seen); Bilirubin Urine Negative (Negative); Blood Urine 1+ (Negative); Cast Urine Automated 0-2 /lpf (0-2); Color Urine Yellow; Glucose Urine UA Negative (Negative); Ketones Urine Negative (Negative); Leukocyte Esterase Urine 2+ (Negative); Nitrite Urine Negative (Negative); Protein Urine Negative (Negative); Specific Gravity Urine 1.032 (1.000-1.030); Urobilinogen Urine Negative (Negative)
[2024-07-18] MEDS: METOPROLOL SUCC 25MG EXT REL TAB PO SCH (12:37)
--- NOTE | 2024-07-18 13:08 | Hospitalist Progress Note ---
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 troponin within normal limits and workup negative for cholecystitis, aspirin for CAD prophylaxis until ACS ruled out N.p.o. in anticipation of procedure Check hemoglobin A1c Outpatient follow-up imaging for abnormal CT findings DVT prophylaxis. SCDs Full code Case discussed with Dr. Andersen of General Surgery. He recommends gallbladder ultrasound to rule out cholecystitis. 07/18 ACS ruled out troponins negative x 3, EKG no acute ischemia echocardiogram: No wall motion abnormalities Discussed with general surgery For cholecystectomy tomorrow IV Zosyn started plan of care discussed with patient in detail and at length all questions answered she is understanding, agreeable, comfortable with the plan of care Admission and Anticipated Discharge Date Admission Date: July 17, 2024 Subjective Seen resting in bed, sitting up, not in distress, comfortable States she feels better overall Denies chest pain, back pain Does have some mild right upper quadrant discomfort No fevers or chills No melena hematochezia No nausea vomiting No other symptoms Review of Systems Review of Systems: all noted and negative except for above Physical Exam Physical Exam: General- oriented x 3, not in distress, speaks in sentences with no effort or accessory muscle use Eyes- anicteric Neck- no JVD Lungs- clear breath sounds bilaterally, no rales/wheezes Heart- normal rate, regular rhythm; no murmurs Abdomen- normal bowel sounds, nondistended, soft, mild right upper quadrant tenderness Extremities- no pretibial edema, no calf tenderness Neuro- alert, oriented x 3; no gross focal neurologic deficits Skin- warm & dry Results & Data Results & Data Vital Signs (Past 12 Hours) Vital Signs Temp Pulse Pulse Resp BP Pulse Ox O2 Del Method 07/18/24 11:26 73 07/18/24 11:15 36.8 C 74 18 112/75 95 Room Air 07/18/24 07:16 36.6 C 69 18 121/79 96 Room Air all noted and reviewed including below
[2024-07-18] MEDS: 4.5GM X1 IV STA (13:48)
[2024-07-18] MEDS: PIPERACILLIN/TAZOBACTAM 4.5 GM/100 ML BAG IV SCH (18:37)
--- NOTE | 2024-07-19 07:55 | Anesthesiology Consultation ---
Date of Service July 19, 2024 Assessment & Plan (1) Encounter for pre-operative examination: Chart Review Chart Review: Acceptable Risk for Surgery and Patient NOT seen in Pre Admission Testing Consults Requested none History Surgery Operation Date: 07/19/24 08:20 Proposed Procedures p Laparoscopic Cholecystectomy - Franca Tavera DO Height/Weight Height: 5 ft 2 in Weight: 86.75 kg Allergies Allergy/AdvReac Type Severity Reaction Status Date / Time Sulfa (Sulfonamide Allergy Intermediate HIVES Verified 07/17/24 19:18 Antibiotics) Medications Home Medications Medication Instructions Recorded Confirmed Last Taken triamterene 37.5 1 tab PO QAM 12/04/17 07/17/24 07/17/24 mg-hydrochlorothiazide 25 mg capsule metoprolol succinate 25 mg 25 mg PO QAM 09/05/20 07/17/24 07/17/24 tablet,extended release 24 hr laaatpkm-doa-wxnk-FA-Ca carb-vit K 1 tab PO QAM 07/17/24 07/17/24 07/17/24 18 mg iron-400 mcg-500 mg tablet Active Medications Generic Name Dose Route Start Last Admin Trade Name Freq PRN Reason Stop Dose Admin Aspirin 81 mg 07/18/24 09:00 07/18/24 07:43 Aspirin 81 Mg Ectab PO 08/17/24 08:59 81 mg DAILY DANA Administration Piperacillin Sod/Tazobactam Sod 4.5 gm in 100 mls @ 25 mls/hr 07/18/24 19:00 07/19/24 07:41 Zosyn IV 07/28/24 18:59 Infused Q8H DANA Infusion Protocol Metoprolol Succinate 25 mg 07/18/24 09:45 07/18/24 12:37 Metoprolol Succ 25mg Ext Rel Tab PO 08/17/24 09:44 25 mg QAM DANA Administration Past Medical History Medical History GERD (gastroesophageal reflux disease) controlled, stable per pt, diet controlled History of COVID-19 11/21/21 - headache, fatigue, body aches - home test-denies hospitalization- states fully resolved Migraine headache Obesity Hypertension controlled, stable per pt Past Family History Family History Other Osteoarthritis Past Surgical History Surgical History History of cataract surgery rt History of total left knee replacement Hx of total hysterectomy laparoscopic History of sacrocolpopexy [place] History of arthroplasty of right knee 09/07/2020 [facility] [place]: SAB at L3-L4 1 attempt + PNB. Hx of foot surgery left foot hammer toe History of esophagogastroduodenoscopy (EGD) History of colonoscopy Hx of oral surgery for abcess root canal Social History Smoking Status: Never smoker Do You Dip or Chew Tobacco: No Hx Alcohol Use: Yes Alcohol type: beer alcohol intake frequency: holidays/special occasions only Hx Substance Use: No substance use type: does not use Physical Exam Vital Signs Last Vital Signs Temp 97.2 F L 07/19/24 07:05 Pulse 82 07/19/24 07:05 Resp 16 07/19/24 07:05 BP 143/81 H 07/19/24 07:05 Pulse Ox 96 07/19/24 07:05 O2 Del Method Room Air 07/19/24 07:05 Testing Laboratory Results 07/18/24 04:12 07/18/24 04:12 PT 10.5 Seconds (9.0-12.0) 07/17/24 17:25 INR 1.0 (0.9-1.1) 07/17/24 17:25 APTT 26 Seconds (21-31) 07/18/24 04:12 Urine Color Yellow 07/18/24 Unknown Urine Appearance Clear (Clear) 07/18/24 Unknown Urine pH 7.0 (4.5-7.5) 07/18/24 Unknown Ur Specific [place] 1.032 (1.000-1.030) H 07/18/24 Unknown Urine Protein Negative (Negative) 07/18/24 Unknown Urine Glucose (UA) Negative (Negative) 07/18/24 Unknown Urine Ketones Negative (Negative) 07/18/24 Unknown Urine Nitrite Negative (Negative) 07/18/24 Unknown Ur Leukocyte Esterase 2+ (Negative) H 07/18/24 Unknown Urine WBC (Auto) 6-10 /hpf (0-5) H 07/18/24 Unknown Urine RBC (Auto) 11-20 /hpf (0-2) H 07/18/24 Unknown U Hyaline Cast (Auto) 0-2 /lpf (0-2) 07/18/24 Unknown U Epithel Cells (Auto) 3-5 /hpf (0-2) H 07/18/24 Unknown Urine Bacteria (Auto) None Seen (None Seen) 07/18/24 Unknown Electrocardiogram Date: 07/17/24 Findings: + NSR @ Chest X-Ray Date: 07/17/24 Findings: + NAD
[2024-07-19 08:12] LABS: Basophils # (auto) 0.02 K/uL (0.00-0.20); Basophils % (auto) 0.4 %; Eosinophils # (auto) 0.23 K/uL (0.00-0.50); Eosinophils % (auto) 5.1 %; Hematocrit (blood only) 39.5 % (37.0-47.0); Hemoglobin 13.3 g/dl (12.0-16.0); Immature Granulocytes # (auto) 0.01 K/uL (0.01-0.20); Immature Granulocytes % (auto) 0.2 %; Lymphocytes # (auto) 1.19 K/uL (1.20-3.40); Lymphocytes % (auto) 26.6 %; Mean Corpuscular Hemoglobin 30.1 pg (25.0-34.0); Mean Corpuscular Hgb Conc 33.7 g/dL (32.0-36.0); Mean Corpuscular Volume 89.4 fL (80.0-100.0); Monocytes # (auto) 0.38 K/uL (0.11-0.59); Monocytes % (auto) 8.5 %; Neutrophils # (auto) 2.65 K/uL (1.40-6.50); Neutrophils % (auto) 59.2 %; Platelet Count 164 K/uL (130-400); RDW Coefficient of Variation 13.8 % (11.5-14.5); RDW Standard Deviation 44.9 fL (36.4-46.3); Red Blood Count 4.42 M/uL (4.20-5.40); White Blood Count 4.48 K/ul (4.8-10.8)
[2024-07-19 08:28] LABS: Albumin Level 3.7 gm/dl (3.4-5.0); BUN Creatinine Ratio 12.4 (10-20); Bilirubin Direct 0.1 mg/dl (0-0.2); Calcium 9.3 mg/dl (8.6-10.3); Creatinine Clr Calc Pharmacy 62.7 ml/min; Total Protein 6.1 gm/dl (6.0-8.3)
--- NOTE | 2024-07-19 08:52 | Surgery Progress Note ---
Date of Service July 19, 2024 Assessment & Plan (1) Biliary colic: Plan plan for the OR today for laparoscopic cholecystectomy The details of the procedure have been explained to her including the risks, benefits and alternatives She expressed understanding of this explanation and all of her questions were answered. Consent has been obtained. She may take her am medications with a small sip of water. Replete K Admission and Anticipated Discharge Date Admission Date: July 18, 2024 Subjective Pt seen this am. States her pain is resolved but she will proceed with cholecystectomy during this admission. She denies N/V Physical Exam Constitutional: not ill appearing, not disheveled, not in distress and not diaphoretic Respiratory: normal respiratory effort; no respiratory distress, no labored breathing and does not use accessory muscles Psychiatric: Orientation: alert and oriented x 3 Judgment: good judgement Results & Data Vital Signs (Past 12 Hours) Vital Signs Temp Pulse Resp BP Pulse Ox O2 Del Method 07/19/24 07:05 36.2 C L 82 16 143/81 H 96 Room Air 07/19/24 03:22 36.6 C 58 L 16 115/76 95 Room Air 07/18/24 23:04 36.7 C 65 16 118/76 98 Room Air PG Care Time/CCT Total # of Minutes Spent Total Time Spent with Patient: Total time spent is greater than 50% in coordination of care (as documented) at patient's floor/unit and/or counseling patient: Coding Level of Care Code 71004 SUB INP/OBS CARE 04/23MIN Diagnoses Biliary colic K80.50
[2024-07-19] MEDS: SODIUM CHLORIDE 0.9% 1,000 ML IV SCH (09:28)
[2024-07-19] MEDS: POTASSIUM CHLORIDE 10 MEQ TABCR PO STA (10:27)
[2024-07-19] MEDS ORDERED: HYDROmorphone INJ 2 MG/ML SYR/VIAL IV PRN (13:39)
[2024-07-19] MEDS ORDERED: ATROPINE SULFATE 0.1 MG/ML 10ML SYR IV PRN (13:39)
[2024-07-19] MEDS ORDERED: PROMETHAZINE HCL 6.25 MG in SODIUM CHLORIDE 0.9% 50 ML IV PRN (13:39)
[2024-07-19] MEDS ORDERED: ePHEDrine sulfate 50 MG/ML AMP IV PRN (13:39)
[2024-07-19] MEDS ORDERED: MIDAZOLAM HCL 1 MG/ML 2ML VIAL ONE (14:45)
[2024-07-19] MEDS ORDERED: fentaNYL citrate PF 100 MCG/2 ML VIAL ONE (14:45)
[2024-07-19] MEDS ORDERED: PROPOFOL IV EMULSION 10 MG/ML 20 ML VIAL IV ONE (14:57)
[2024-07-19] MEDS ORDERED: DEXAMETHASONE SOD INJ 4 MG/ML VIAL ONE (14:57)
[2024-07-19] MEDS ORDERED: ONDANSETRON INJ 2 MG/ML 2 ML VIAL ONE (14:57)
[2024-07-19] MEDS ORDERED: ROCURONIUM BROMIDE 10 MG/ML 5 ML VIAL IV ONE (14:57)
[2024-07-19] MEDS ORDERED: SUGAMMADEX SODIUM 200 MG/2 ML VIAL IV ONE (15:04)
[2024-07-19] MEDS ORDERED: SODIUM CHLORIDE 0.9% PF INJ 10 ML VIAL ONE (15:14)
[2024-07-19] MEDS ORDERED: ceFAZolin 330 MG/ML 1 GM VIAL ONE (15:14)
[2024-07-19] MEDS: ceFAZolin 2000MG 2,000 MG/15 ML SYR IV ONE (15:16)
[2024-07-19] MEDS ORDERED: ceFAZolin 2000MG 2,000 MG/15 ML SYR IV ONE (15:21)
[2024-07-19] MEDS ORDERED: KETOROLAC 30 MG/ML VIAL ONE (15:38)
[2024-07-19] MEDS: BUPIVACAINE/EPINEPHRINE 0.5% MPF 1:200,000 30 ML VIAL ONE (15:56)
--- NOTE | 2024-07-19 16:16 | Operative Report ---
PG Post Operative Report Pre & Post Diagnosis Operation Date: 07/19/24 08:20 Pre-Op Diagnosis: Cholecystitis. Post-Op Diagnosis: Cholecystitis. I identified the patient and participated in the time-out.: Yes Procedure Operation Date: 07/19/24 08:20 Actual Procedures p Laparoscopic Cholecystectomy - Franca Tavera DO Surgeon Franca Tavera DO [facility] Special[facility] Alannah Braxton Estimated Blood Loss 5 Findings Consistent with Post-Op Diagnosis Specimens Gallbladder Anesthesia Type General Complications None Indications 68F with evidence for cholelithiasis and biliary colic symptoms presents for laparoscopic cholecystectomy Description of Procedure The patient was brought back to the operating room placed on the operating table in supine position. She was connected to cardiac and oxygen monitoring, supplemental O2 was provided and SCDs were applied to bilateral lower extremities. The patient was administered general anesthesia and a secure airway was established. The abdomen was prepped and draped in typical sterile fashion and a timeout was conducted. Local anesthetic was used to anesthetize the skin and subcutaneous tissue prior to making all incisions and all incisions were made with a 11 blade. Intra-abdominal access was gained using a Veress needle at the supraumbilical fold and this was confirmed with a saline drop test. A 5mm trocar was inserted using direct visualization with a 5 mm laparoscope and Optiview port. An 11 mm trocar was inserted under direct visualization in addition to two 5 mm trocars along the right subcostal margin. The OR table was positioned in reverse Trendelenburg and left side down. The gallbladder was grasped and retracted and the cystic triangle was dissected exposing the cystic artery and cystic duct. Structure was clipped using two 5 mm clips proximally 1 distally and then each structure was transected with the endoscopic darron. The gallbladder was cauterized away from the liver bed and bleeding along the way was controlled using cautery. A small structure appearing to be either an accessory biliary duct or venous vessel along the vein surface of the liver bed within the cystic plate that had been transected on cauterizing the gallbladder from the cystic plate was additionally clipped in case this would leak of bile or bleed in the future. The area was copiously irrigated and suctioned dry. Small amount of oozing of the liver bed was controlled using cautery. Hemostasis was completely achieved and the gallbladder was placed in an Endo Catch bag. The gallbladder was removed from the epigastric incision which did need to be stretched in order allow for removal. The gallbladder was then placed in a labeled container and sent to pathology for further analysis. The OR table was returned to the neutral position. The area was checked again for irrigating hemostasis hemostasis remained adequate and without any new fluid collections. The fascia at the epigastric incision was closed using 0 Vicryl suture. Additional local anesthetic was used at each incision site. The skin incisions were approximated using 4-0 Monocryl suture. The abdomen was wiped clean with a saline soaked lap pad and dry. The incisions were then further sealed with Dermabond. The patient was awake from anesthesia, secure airway was removed and she was transferred to recovery in stable condition. The patient tolerated the procedure well. I attest to the content of the Intraoperative Record and any orders documented therein. Any exceptions are noted below.
--- NOTE | 2024-07-19 16:32 | Anesthesiology Progress Note ---
Date of Service July 19, 2024 Anesthesia Post Procedure Vital Signs Vital Signs: Temp Pulse Pulse Pulse Resp BP BP 07/19/24 16:25 36.5 C 67 23 110/67 07/19/24 16:15 68 21 115/72 07/19/24 16:07 36.5 C 74 17 123/74 07/19/24 13:13 36.7 C 66 20 143/83 H 07/19/24 11:02 36.8 C 70 16 121/79 07/19/24 09:27 84 135/89 07/19/24 08:00 58 L 07/19/24 07:05 36.2 C L 82 16 143/81 H 07/19/24 03:22 36.6 C 58 L 16 115/76 07/18/24 23:04 36.7 C 65 16 118/76 07/18/24 19:40 36.8 C 74 16 121/85 07/18/24 18:56 82 Pulse Ox O2 Del Method O2 Flow Rate 07/19/24 16:25 96 Room Air 07/19/24 16:15 99 Oxymask 5 07/19/24 16:07 98 Oxymask 5 07/19/24 13:13 99 Room Air 07/19/24 11:02 95 Room Air 07/19/24 09:27 07/19/24 08:00 07/19/24 07:05 96 Room Air 07/19/24 03:22 95 Room Air 07/18/24 23:04 98 Room Air 07/18/24 19:40 97 Room Air 07/18/24 18:56 Pain Intensity Chest: Pain Intensity: 5 Transfer of Care Handoff Completed per policy Notes Mental Status: alert / awake / arousable Patient Amnestic to Procedure: Yes Nausea / Vomiting: adequately controlled Pain: adequately controlled Airway Patency, RR, SpO2: stable & adequate BP & HR: stable & adequate Hydration State: stable & adequate Anesthetic Complications: no major complications apparent
--- NOTE | 2024-07-19 18:17 | Hospitalist Progress Note ---
Date of Service July 19, 2024 Assessment & Plan (1) Chest pain: Plan: Chest pain going to the abdomen and back secondary to acute cholecystitis, biliary colic ACS ruled out Troponins x 3 negative EKG nonspecific T wave abnormalities in the inferior leads, anterior leads Echocardiogram: Left ventricle is normal in size, mild concentric LVH, sigmoid septum, left ventricular wall motion is normal, EF 60 to 65%, grade 1 diastolic dysfunction No significant valvular disease evaluated by general surgery Status post laparoscopically cystectomy 07/19/2024 Continue clear liquids for now Continue IV Zosyn Possible discharge tomorrow Hypertension stable on Metoprolol HCTZ on hold Incidental finding of aortic ectasia, atherosclerosis; Celiac Trunk Stenosis; and Pulmonary nodules CT chest: Aorta: There is ectasia of the ascending aorta measures 3.9 cm. Mild atherosclerosis. No aortic aneurysm or dissection. Lungs: Scattered pulmonary nodules measure up to 4 mm. No consolidation. IMPRESSION: 1. No aortic aneurysm or dissection. 2. Question cholelithiasis. There is prominence of the gallbladder with a brianna-cholecystic fluid. Consider further evaluation with gallbladder ultrasound. 3. 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 4. Scattered pulmonary nodules measure up to 4 mm. Fleischner Society Guidelines suggest one should consider a follow-up chest CT at 12 months in low-risk or high-risk patients due to the morphology and/or location of this nodule. If unchanged, no further follow-up is necessary. 5. Small hiatal hernia. 6. Nonobstructing left renal calculus. CT abd: Aorta: No aortic aneurysm or dissection. Mild atherosclerosis of the aorta. No significant stenosis. Celiac trunk and mesenteric arteries: Approximate 50% stenosis of the origin of the celiac trunk. The SMA and LAMAR are within normal limits. Renal arteries: There is atherosclerosis of the origin of both renal arteries without significant stenosis. Iliac arteries: There is atherosclerosis of the bilateral common, internal and external iliac arteries without significant stenosis. - will need Aspirin, Statin once healed from lap madiha - Further work up, management, and ff up as outpatient DVT prophylaxis. SCDs Full code possible d/c home tomorrow (2) Acute cholecystitis: Admission and Anticipated Discharge Date Admission Date: July 18, 2024 Subjective ff up for acute cholecystitis, etc seen resting in bed, comfortable s/p Laparoscopic cholecystectomy today Sitting up, in good spirits States that she feels okay overall Has some bloatedness Denies nausea or vomiting No chest pain, shortness of breath, palpitations, dizziness No other new symptoms Review of Systems Review of Systems: all noted and negative except for above Physical Exam Physical Exam: General- oriented x 3, not in distress, speaks in sentences with no effort or accessory muscle use Eyes- anicteric Neck- no JVD Lungs- clear breath sounds bilaterally, no rales/wheezes Heart- normal rate, regular rhythm; no murmurs Abdomen- normal bowel sounds, nondistended, soft, nontender Extremities- no pretibial edema, no calf tenderness Neuro- alert, oriented x 3; no gross focal neurologic deficits Skin- warm & dry Results & Data Results & Data Vital Signs (Past 12 Hours) Vital Signs Temp Pulse Pulse Pulse Resp BP BP 07/19/24 18:02 62 07/19/24 17:50 36.4 C L 64 17 134/83 07/19/24 17:13 36.4 C L 61 16 128/83 07/19/24 17:10 36.4 C L 60 17 128/83 07/19/24 16:54 36.5 C 71 17 116/75 07/19/24 16:35 69 15 107/58 L 07/19/24 16:25 36.5 C 67 23 110/67 07/19/24 16:15 68 21 115/72 07/19/24 16:07 36.5 C 74 17 123/74 07/19/24 13:13 36.7 C 66 20 143/83 H 07/19/24 11:02 36.8 C 70 16 121/79 07/19/24 09:27 84 135/89 07/19/24 08:00 58 L 07/19/24 07:05 36.2 C L 82 16 143/81 H Pulse Ox O2 Del Method O2 Flow Rate 07/19/24 18:02 07/19/24 17:50 97 Room Air 07/19/24 17:13 95 Room Air 07/19/24 17:10 96 Room Air 07/19/24 16:54 94 Room Air 07/19/24 16:35 96 Room Air 07/19/24 16:25 96 Room Air 07/19/24 16:15 99 Oxymask 5 07/19/24 16:07 98 Oxymask 5 07/19/24 13:13 99 Room Air 07/19/24 11:02 95 Room Air 07/19/24 09:27 07/19/24 08:00 07/19/24 07:05 96 Room Air all noted and reviewed including below
[2024-07-20 07:24] LABS: Hemoglobin 12.7 g/dl (12.0-16.0); Immature Granulocytes # (auto) 0.03 K/uL (0.01-0.20); Immature Granulocytes % (auto) 0.3 %; Lymphocytes # (auto) 0.66 K/uL (1.20-3.40); Lymphocytes % (auto) 7.6 %; Mean Corpuscular Hemoglobin 30.1 pg (25.0-34.0); Mean Corpuscular Hgb Conc 33.4 g/dL (32.0-36.0); Mean Platelet Volume 10.5 fL (9.4-12.4); Monocytes # (auto) 0.44 K/uL (0.11-0.59); Neutrophils % (auto) 87.1 %; Platelet Count 182 K/uL (130-400); RDW Coefficient of Variation 13.6 % (11.5-14.5); RDW Standard Deviation 44.8 fL (36.4-46.3); Red Blood Count 4.22 M/uL (4.20-5.40); White Blood Count 8.73 K/ul (4.8-10.8)
[2024-07-20 07:41] LABS: Albumin Level 3.6 gm/dl (3.4-5.0); BUN Creatinine Ratio 13.5 (10-20); Bilirubin Direct 0.1 mg/dl (0-0.2); Bilirubin,Total 0.6 mg/dl (0.2-1.0); Calcium 9.2 mg/dl (8.6-10.3); Creatinine Clr Calc Pharmacy 74.7 ml/min; Potassium 4.1 mmol/L (3.5-5.1)
--- NOTE | 2024-07-20 09:01 | Surgery Progress Note ---
<Statement entered by Franca Tavera DO - 07/20/24 10:22> I have seen this patient this am. She feels great and is ready for discharge. She will follow up in the office in 1-3 weeks Date of Service July 20, 2024 Assessment & Plan (1) Acute cholecystitis: Plan: POD#1 lap madiha WBC 8.7. Hbg 12.7. vitals stable Abdomen soft, incisions c/d/i Pain controlled No nausea/vomiting Advance diet as tolerates D/c instructions reviewed, f/u in the office in 2 weeks time for post op check Admission and Anticipated Discharge Date Admission Date: July 18, 2024 Subjective Patient feeling very well. Abdominal pain tolerable. Had some R shoulder discomfort this AM that is improved with heat and tylenol. She denies nausea. Physical Exam Physical Exam: awake/alert, no distress Gastrointestinal (Abdomen): Inspection/Auscultation: + abdominal surgical incision (c/d/i with dermabond); abdomen not distended Percussion/Palpation: + abdomen tender (expected post op discomfort) and abdomen soft Results & Data Vital Signs (Past 12 Hours) Vital Signs Temp Pulse Pulse Resp BP BP Pulse Ox 07/20/24 08:02 97.9 F 70 16 110/72 95 07/20/24 02:48 97.9 F 52 L 18 113/72 94 07/19/24 22:41 98.6 F 65 20 114/72 94 07/19/24 22:14 70 O2 Del Method 07/20/24 08:02 Room Air 07/20/24 02:48 Room Air 07/19/24 22:41 Room Air 07/19/24 22:14 PG Care Time/CCT Total # of Minutes Spent Total Time Spent with Patient: Total time spent is greater than 50% in coordination of care (as documented) at patient's floor/unit and/or counseling patient: Coding Level of Care Code 74174 Post Operative Follow-Up Diagnoses Acute cholecystitis K81.0
[2024-07-20] MEDS: TRIAMTERENE/HCTZ 37.5/25MG TAB PO SCH (09:25)
[2024-07-20 10:39] VITALS: BP 105/70; RESP 18; TEMP 97.7; O2SAT 96
[2024-07-20 13:27] VITALS: PULSE 69
--- NOTE | 2024-07-20 14:10 | Discharge Summary ---
Discharge Summary Date of Service July 20, 2024 Principal Dx & Hospital Course #1 = Principal Diagnosis (1) Chest pain: Chest pain going to the abdomen and back secondary to acute cholecystitis, biliary colic ACS ruled out Troponins x 3 negative EKG nonspecific T wave abnormalities in the inferior leads, anterior leads Echocardiogram: Left ventricle is normal in size, mild concentric LVH, sigmoid septum, left ventricular wall motion is normal, EF 60 to 65%, grade 1 diastolic dysfunction No significant valvular disease evaluated by general surgery Status post laparoscopically cystectomy 07/19/2024 Continue clear liquids for now Continue IV Zosyn -discharge today, tolerating diet before discharge Hypertension stable on Metoprolol HCTZ on hold Incidental finding of aortic ectasia, atherosclerosis; Celiac Trunk Stenosis; and Pulmonary nodules CT chest: Aorta: There is ectasia of the ascending aorta measures 3.9 cm. Mild atherosclerosis. No aortic aneurysm or dissection. Lungs: Scattered pulmonary nodules measure up to 4 mm. No consolidation. IMPRESSION: 1. No aortic aneurysm or dissection. 2. Question cholelithiasis. There is prominence of the gallbladder with a brianna-cholecystic fluid. Consider further evaluation with gallbladder ultrasound. 3. 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 4. Scattered pulmonary nodules measure up to 4 mm. Fleischner Society Guidelines suggest one should consider a follow-up chest CT at 12 months in low-risk or high-risk patients due to the morphology and/or location of this nodule. If unchanged, no further follow-up is necessary. 5. Small hiatal hernia. 6. Nonobstructing left renal calculus. CT abd: Aorta: No aortic aneurysm or dissection. Mild atherosclerosis of the aorta. No significant stenosis. Celiac trunk and mesenteric arteries: Approximate 50% stenosis of the origin of the celiac trunk. The SMA and LAMAR are within normal limits. Renal arteries: There is atherosclerosis of the origin of both renal arteries without significant stenosis. Iliac arteries: There is atherosclerosis of the bilateral common, internal and external iliac arteries without significant stenosis. - will need Aspirin, Statin once healed from lap madiha - Further work up, management, and ff up as outpatient DVT prophylaxis. SCDs Full code possible d/c home tomorrow (2) Acute cholecystitis: Notes For Next Care Provider 68 yo female with pmhx of hypertension, migraine presented for substernal heaviness. On medicine, found to have acute cholecystitis. Taken to OR for lap madiha, given abx. POD 1, patient passing gas, urinating, tolerating diet, per surgery and medicine, patient medically stable for discharge home. To do: [ ] f/u with CT chest in 4-12 months given lung nodules [ ] f/u with gen surg in 2 weeks Medication Changes From Visit -see below Admission HPI Per Admitting Provider History obtained from patient and records. Medical history significant for hypertension, migraine. This afternoon, patient experienced substernal heaviness going down her left underarm and upper abdomen. Intense back pain radiation. No cough, no SOB. No headache. No unusual exertion except for Easter brunch preparation this morning. No prior episodes. Different from reflux. Patient consulted ER following advice of ER physician daughter. Aspirin administered at the ER. Patient currently comfortable. Medical History as above Surgical History : Hysterectomy, sacrocervicoplexy, bunion surgery Family History : Negative heart disease or blood clots;, COPD, non-Hodgkin's lymphoma, asthma Personal/Social history : Non-smoker, occasional EtOH intake, retired schoolteacher Discharge Exam Gen: A&O 3 NAD HEENT: NCAT, EOMI, not icteric. External ears normal. No rhinorrhea. Moist mucous membranes. Neck: Supple, full range of motion, no observable masses, No meningeal sign. Lungs: No Respiratory distress. CV: RRR, no edema. Abdomen: Soft, nondistended, No rebound tenderness. wound sites appear clean MSK: No joint swelling, no redness. Skin: No rashes, petechiae, lesions. Normal color per patient. Neuro: Normal Gait, Grossly intact. Psych: Appropriate for situation. Updated Medication List Medication Instructions Recorded Confirmed Type triamterene 37.5 1 tab PO QAM 12/04/17 07/17/24 History mg-hydrochlorothiazide 25 mg capsule metoprolol succinate 25 mg 25 mg PO QAM 09/05/20 07/17/24 History tablet,extended release 24 hr [id number] carb-vit K 1 tab PO QAM 07/17/24 07/17/24 History 18 mg iron-400 mcg-500 mg tablet oxycodone 5 mg tablet 5 - 10 mg (1 - 2 x 5 mg) PO 07/20/24 Rx .[id number] PRN pain, for initial therapy, max 6 tabs per day #15 tabs Hospital Stay Data Consultations 07/17/24 19:24 ED Decision to Admit Stat 07/17/24 23:57 Consult General Surgery Routine Procedures Performed Operation Date: 07/19/24 08:20 Actual Procedures p Laparoscopic Cholecystectomy - Franca Tavera DO Diagnostic Imagining Performed 07/17/24 20:23 CT angio chest dissec wo/w con Stat CTA abdomen pelvis w con [CT angio abdomen pelvis w con] Stat 07/17/24 23:57 US gallbladder Stat Pending Results Patient Have Any Pending Studies at Discharge: Yes Discharge Instructions Given to Patient (Per Discharging Provider) You have surgical glue called dermabond on your surgical site incisions. You may shower with this on. This will tend to come off within a couple of weeks. Do not pick at it. Total Time Total Time Spent Total Time Spent (In Minutes): I spent a total of 35 minutes in direct patient care, including [id number] time with the patient and/or family, reviewing medical records, ordering and reviewing diagnostic tests, and coordinating care with other healthcare providers. This time includes: history taking, physical examination, medical decision making, counseling, ECG interpretation, imaging interpretation, lab interpretation, orders, and education, excluding time spent in the performance of separately billed services.
== END 2024-07-20 13:27 | disposition home or self-care (01) | DRG 419 ==
LOC: 2S 17:09 → ED 17:09 → 2S 07-18 00:19 → SUATTDRO 07-18 13:07
DX: K81.0 Acute cholecystitis; K21.9 Gastro-esophageal reflux disease without esophagitis; Z88.2 Allergy status to sulfonamides; G43.909 Migraine, unspecified, not intractable, without status migrainosus; I10 Essential (primary) hypertension